=== PATIENT | female | born 1990 | race Caucasian/White ===

== ENCOUNTER → 2023-03-28 | Emergency (ER) | payer OTHER ==
[~2023-03-28] MED LIST: METOCLOPRAMIDE 10 MG/2mL INJ ONE; MORPHINE 4 MG/ML SYR ONE; NA CHLORIDE 0.9% 1,000 ML ONE; dexAMETHasone 10 MG/ML VIAL ONE
[2023-03-28 21:49] LABS: Specific Gravity 1.021 (1.005-1.030)
[2023-03-28 21:50] LABS: Urine Bacteria None Seen /HPF (<20); Urine Bilirubin NEGATIVE (Negative); Urine Blood Negative (Negative); Urine Clarity Turbid (Clear); Urine Color Light-Yellow (Yellow); Urine Crystals Unidentified Few /HPF (None Seen); Urine Glucose NEGATIVE (Negative); Urine Mucus Slight /HPF (None Seen); Urine Protein NEGATIVE (Negative); Urine RBC <5 /HPF (None Seen); Urine Urobilinogen Normal (Normal); Urine pH 6.5 (5.0-7.0)
[2023-03-28 21:58] LABS: Barbiturates NEGATIVE (NEGATIVE); Benzodiazepines NEGATIVE (NEGATIVE); Cocaine NEGATIVE (NEGATIVE); METHAMPHETAM NEGATIVE (NEGATIVE); Methadone NEGATIVE (NEGATIVE); Opiates POSITIVE (NEGATIVE); Phencyclidine NEGATIVE (NEGATIVE); THC Cannibis NEGATIVE (NEGATIVE)
[2023-03-28 22:00] LABS: Absolute Lymphocytes (CBC) 2.4 K/uL (0.7-4.9); Hematocrit 39.2 % (36.0-45.0); Lymphocytes % 18.3 % (15.3-44.8); MPV 9.8 fL (7.6-11.3); Platelets 271 thou/uL (152-406); RBC Red Blood Cell Count 4.67 M/uL (3.86-4.86)
[2023-03-28 22:02] LABS: Protime INR 1.24
[2023-03-28 22:11] LABS: Albumin 3.7 g/dL (3.4-5.0); Bilirubin Direct 0.1 mg/dL (0-0.2); Bilirubin Indirect, Calculated 0.4 mg/dL (0.2-0.8); Bilirubin Total 0.5 mg/dL (0.2-1.0); Protein, Total 8.5 g/dL (6.4-8.2); Troponin High Sensitivity 18.5 pg/mL (<58.9)
[2023-03-28 22:12] LABS: Potassium 4.3 mEq/L (3.5-5.1)
--- NOTE | 2023-03-28 23:50 | EDPHYS ---
Physician Documentation [facility] Name: Ellie Song Age: 33 yrs Sex: Female : 1990 Arrival Date: 03/28/2023 Time: 20:26 Bed 14 Private MD: ED Physician Charbel Rowley HPI: 03/28 21:17 This 33 yrs old Female presents to ER via EMS with complaints of Headache. sb4 21:17 patient with history of cerebral shunt and woods holt syndrome presents with sb4 complaints of severe headache with associated brief loss of consciousness. patient was seen here a month and a half ago with similar symptoms, but additionally with weakness and hyporeflexia. she had a multitude of tests done at [facility] without any definitive answer. she has been taking keppra daily since. she has not had an episode of severe headache until now. Historical: - Allergies: 20:58 Ibuprofen; km8 - Home Meds: 20:58 Keppra Oral [Active]; hydrocodone-acetaminophen 5-325 mg Oral tablet [Active]; km8 - PMHx: 20:58 cerebral shunt; [place] (cerebral shunt); km8 - PSHx: 20:58 right arm (cerebral shunt); km8 - Immunization history:: Client reports receiving the 2nd dose of the Covid vaccine, Flu vaccine is up to date. - Social history:: Smoking status: Patient denies any tobacco usage or history of. Patient uses alcohol, but reports only rare drinking. Patient/guardian denies using street drugs. ROS: 21:17 Constitutional: Negative for fever, chills, and weight loss, sb4 Vital Signs: 20:56 BP 132 / 101; Pulse 95; Resp 16; Temp 98.9; Pulse Ox 97% on R/A; Weight 90.72 kg; km8 Height 5 ft. 7 in. (R); Pain 9/10; 22:00 BP 128 / 81; Pulse 49; Resp 15; Pulse Ox 100% on R/A; Pain 3/10; pf1 23:00 BP 123 / 86; Pulse 56; Resp 15; Pulse Ox 99% on R/A; Pain 2/10; pf1 03/29 00:00 BP 123 / 80; Pulse 55; Resp 18; Pulse Ox 98% ; Pain 2/10; pf1 03/28 20:56 Body Mass Index 31.32 (90.72 kg, 170.18 cm) km8 02 20:56 Pain Scale: Adult km8 22:00 Pain Scale: Adult pf1 23:00 Pain Scale: Adult pf1 03/29 00:00 Pain Scale: Adult pf1 Sentinel Coma Score: 03/28 23:48 Eye Response: spontaneous(4). Motor Response: obeys commands(6). Verbal Response: sb4 oriented(5). Total: 15. MDM: 20:51 Patient medically screened. sb4 23:48 Data reviewed: vital signs, nurses notes, lab test result(s), EKG, radiologic studies, sb4 and as a result, I will discharge patient. Counseling: I had a detailed discussion with the patient and/or guardian regarding the historical points, exam findings, and any diagnostic results supporting the discharge/admit diagnosis, lab results, radiology results, the need for outpatient follow up, a neurologist, to return to the emergency department if symptoms worsen or persist or if there are any questions or concerns that arise at home. 03/28 21:04 Order name: Basic Metabolic Panel; Complete Time: 22:15 sb4 03/28 21:04 Order name: CBC with Diff; Complete Time: 22:05 sb4 03/28 21:04 Order name: Hepatic Function; Complete Time: 22:15 sb4 03/28 21:04 Order name: Magnesium; Complete Time: 22:15 sb4 03/28 21:04 Order name: Test, Urine; Complete Time: 21:50 sb4 03/28 21:04 Order name: Protime (+inr); Complete Time: 22:02 sb4 03/28 21:04 Order name: Ptt, Activated; Complete Time: 22:02 sb4 03/28 21:04 Order name: Troponin High Sensitivity; Complete Time: 22:15 sb4 03/28 21:04 Order name: UDS; Complete Time: 22:00 sb4 03/28 21:04 Order name: Urinalysis w/ reflexes; Complete Time: 21:51 sb4 03/28 21:08 Order name: Head Brain W/ Wo Con CT sb4 03/28 21:04 Order name: EKG; Complete Time: 21:04 sb4 03/28 21:04 Order name: Cardiac monitoring; Complete Time: 21:25 sb4 03/28 21:04 Order name: EKG - Nurse/Tech; Complete Time: 22:02 sb4 03/28 21:04 Order name: IV Saline Lock; Complete Time: : sb4 03/28 21:04 Order name: Labs collected and sent; Complete Time: :42 sb4 03/28 21:04 Order name: NPO; Complete Time: :25 sb4 03/28 21:04 Order name: O2 Per Protocol; Complete Time: : sb4 03/28 21:04 Order name: O2 Sat Monitoring; Complete Time: : sb4 EC:51 Rate is 46 beats/min. Rhythm is regular, Sinus bradycardia. [place] interval is normal at sb4 130 msec. QRS interval is normal at 98 msec. QT interval is prolonged at 488 msec. No Q waves. T waves are Normal. No ST changes noted. Clinical impression: Sinus bradycardia. Interpreted by me. Reviewed by me. Administered Medications: 22:01 Drug: Decadron - Dexamethasone IVP 10 mg IVP once Route: IVP; Site: right hand; pf1 23:00 Follow up: Response: No adverse reaction; Marked relief of symptoms pf1 22:01 Drug: NS 0.9% IV 1000 ml IV at 1 bolus Per protocol; 1000 mL bolus Route: IV; Rate: 1 pf1 bolus; Site: right hand; 23:00 Follow up: Response: No adverse reaction; Marked relief of symptoms pf1 23:00 Follow up: Response: No adverse reaction; Marked relief of symptoms; IV Status: pf1 Completed infusion; IV Intake: 1000ml 22:02 Drug: metoCLOPramide IVP 10 mg IVP once; over 1 to 2 minutes Route: IVP; Site: right pf1 hand; 23:00 Follow up: Response: No adverse reaction; Marked relief of symptoms pf1 23:53 CANCELLED (Patient Refused): morphineor iv 4 mg IVP once over 4 mins pf1 Disposition: 23:48 Chart complete. sb4 03/29 05:24 Co-signature as Attending Physician, Charbel Rowley MD I agree with the assessment sp4 and plan of care. I reviewed the patient's care provided by the Advanced Practice Provider and agree with the diagnosis and treatment plan. Disposition Summary: 03/28/23 23:49 Discharge Ordered Notes: Location: Home sb4 Problem: an acute exacerbation sb4 Symptoms: have improved sb4 Condition: Stable sb4 Diagnosis - Complicated headache syndromes sb4 Followup: sb4 - With: Emergency Department - When: As needed - Reason: Trouble breathing, Worsening of condition Discharge Instructions: - Discharge Summary Sheet sb4 - Migraine Headache, [id number] sb4 Forms: - Thank You Letter sb4 - Patient Portal Instructions sb4 - Leadership Thank You Letter sb4 Prescriptions: - Imitrex 5 mg/Actuation Nasal Yeso - inhale 1 spray INTRANASAL route one time x 1 dose; if headache returns, the sb4 dose may be repeated once after 2 hours, not to exceed a total daily dose of 8 sprays; 1 Applicator; Refills: 0, Product Selection Permitted - Reglan 10 mg Oral Tablet - take 1 tablet ORAL route every 6 hours take 30 minutes before meals and at sb4 bedtime; 20 tablet; Refills: 0, Product Selection Permitted Signatures: Dispatcher [employer] EDJagruti Blackmon PA-C PA-C sb4 Karin Krishnamurthy RN RN pf1 Charbel Rowley MD MD sp4 Peg Kaur RN RN km8 Corrections: (The following items were deleted from the chart) 03/28 21:14 21:04 Head Brain Wo Cont+CT.RAD.BRZ ordered. EDMS EDMS 23:53 21:04 morphine IVP or IV 4 mg IVP once over 4 mins ordered. sb4 pf1 23:53 23:53 morphine IVP or IV 4 mg IVP once over 4 mins ordered. pf1 pf1
--- NOTE | 2023-03-28 23:50 | ER ---
Nurse's Notes [facility] Name: Ellie Song Age: 33 yrs Sex: Female : 1990 Arrival Date: 03/28/2023 Time: 20:26 Bed 14 Private MD: Diagnosis: Complicated headache syndromes Presentation: 03/28 20:30 Chief complaint: EMS states: tone out for migraine and pt being unconscious; pt reports km8 MORROW for 3 days, with hx of migraines; VSS. Onset of symptoms was March 25, 2023. 20:30 Method Of Arrival: EMS: [facility] km8 20:56 Chief complaint: Spouse and/or significant other states: MORROW for 3 days, using km8 medication as prescribed, but no relief; pt had LOC for about 5 mins before EMS arrived. Coronavirus screen: Client denies travel out of the [place] in the last 14 days. Ebola Screen: No symptoms or risks identified at this time. Initial Sepsis Screen: Does the patient meet any 2 criteria? No. Patient's initial sepsis screen is negative. Does the patient have a suspected source of infection? No. Patient's initial sepsis screen is negative. Risk Assessment: Do you want to hurt yourself or someone else? Patient reports no desire to harm self or others. 20:56 Acuity: KWAME 3 km8 Triage Assessment: 20:58 Headache History: The patient has had previous headaches and this one is similar to km8 previous episodes. General: Appears in no apparent distress. uncomfortable, Behavior is anxious, flat. Pain: Complains of pain in forehead Pain currently is 8 out of 10 on a pain scale. Pain began 2-3 days ago. Also complains of photophobia. Neuro: Level of Consciousness is awake, alert, obeys commands, Oriented to person, place, time, situation, Reports headache frontal area. Cardiovascular: Denies chest pain, shortness of breath, Capillary refill < 3 seconds Patient's skin is warm and dry. Respiratory: Airway is patent Respiratory effort is even, unlabored, Respiratory pattern is regular, symmetrical. GI: Reports nausea. Derm: Skin is intact, is healthy with good turgor, Skin is dry, Skin is pink, warm \T\ dry. normal, Skin temperature is warm. Historical: - Allergies: 20:58 Ibuprofen; km8 - Home Meds: 20:58 Keppra Oral [Active]; hydrocodone-acetaminophen 5-325 mg Oral tablet [Active]; km8 - PMHx: 20:58 cerebral shunt; [place] (cerebral shunt); 8 - PSHx: 20:58 right arm (cerebral shunt); km8 - Immunization history:: Client reports receiving the 2nd dose of the Covid vaccine, Flu vaccine is up to date. - Social history:: Smoking status: Patient denies any tobacco usage or history of. Patient uses alcohol, but reports only rare drinking. Patient/guardian denies using street drugs. Screenin:[facility] ED Fall Risk Assessment (Adult) History of falling in the last 3 months, pf1 including since admission No falls in past 3 months (0 pts) Confusion or Disorientation No (0 pts) Intoxicated or Sedated No (0 pts) Impaired Gait Yes (1 pt) Mobility Assist Device Used No (0 pt) Altered Elimination No (0 pt) Score/Fall Risk Level 0 - 2 = Low Risk Oriented to surroundings, Maintained a safe environment, Educated pt \T\ family on fall prevention, incl call for assistance when getting out of bed, Assessed \T\ reinforced patient's understanding of fall precautions, Provided non-skid footwear, Hourly rounding (assess needs \T\ fall precautionary measures) done, Used ambulatory aids as needed (educated on \T\ assisted with), Used gait belt as appropriate. 21:30 Abuse screen: Denies threats or abuse. Nutritional screening: No deficits noted. pf1 Tuberculosis screening: No symptoms or risk factors identified. Assessment: 21:02 General: Appears in no apparent distress. comfortable, well groomed, well developed, pf1 Behavior is calm, cooperative, appropriate for age, quiet. 21:02 Pain: Complains of pain in forehead Pain currently is 3 out of 10 on a pain scale. pf1 Neuro: Level of Consciousness is awake, alert, obeys commands, Oriented to person, place, time, situation, Reports headache frontal area, per family members a syncopal episode. Cardiovascular: No deficits noted. Capillary refill < 3 seconds Patient's skin is warm and dry. Parent/caregiver reports patient has had syncope. Respiratory: No deficits noted. Airway is patent Respiratory effort is even, unlabored, Respiratory pattern is regular, symmetrical, Breath sounds are clear bilaterally. GI: No deficits noted. No signs and/or symptoms were reported involving the gastrointestinal system. : No deficits noted. No signs and/or symptoms were reported regarding the genitourinary system. EENT: No deficits noted. No signs and/or symptoms were reported regarding the EENT system. Derm: No deficits noted. No signs and/or symptoms reported regarding the dermatologic system. 22:00 Reassessment: Patient appears in no apparent distress at this time. Patient and/or pf1 family updated on plan of care and expected duration. Pain level reassessed. Patient is alert, oriented x 3, equal unlabored respirations, skin warm/dry/pink. 23:00 Reassessment: Patient appears in no apparent distress at this time. Patient and/or pf1 family updated on plan of care and expected duration. Pain level reassessed. Patient is alert, oriented x 3, equal unlabored respirations, skin warm/dry/pink. Patient states symptoms have improved. 03/29 00:00 Reassessment: Patient appears in no apparent distress at this time. Patient and/or pf1 family updated on plan of care and expected duration. Pain level reassessed. Patient is alert, oriented x 3, equal unlabored respirations, skin warm/dry/pink. Patient states feeling better. Patient states symptoms have improved. Vital Signs: 03/28 20:56 BP 132 / 101; Pulse 95; Resp 16; Temp 98.9; Pulse Ox 97% on R/A; Weight 90.72 kg; km8 Height 5 ft. 7 in. (R); Pain 9/10; 22:00 BP 128 / 81; Pulse 49; Resp 15; Pulse Ox 100% on R/A; Pain 3/10; pf1 23:00 BP 123 / 86; Pulse 56; Resp 15; Pulse Ox 99% on R/A; Pain 2/10; pf1 03/29 00:00 BP 123 / 80; Pulse 55; Resp 18; Pulse Ox 98% ; Pain 2/10; pf1 03/28 20:56 Body Mass Index 31.32 (90.72 kg, 170.18 cm) [facility] 03/28 20:56 Pain Scale: Adult 8 22:00 Pain Scale: Adult pf1 23:00 Pain Scale: Adult pf1 03/29 00:00 Pain Scale: Adult pf1 Omar Coma Score: 03/28 23:48 Eye Response: spontaneous(4). Motor Response: obeys commands(6). Verbal Response: sb4 oriented(5). Total: 15. ED Course: 20:28 Patient arrived in ED. [id number] 20:33 Jagruti Winston [facility]-C [facility] sb4 20:33 Charbel Rowley MD is Attending Physician. sb4 20:58 Triage completed. km8 20:58 Arm band placed on right wrist. km8 21:00 Patient has correct armband on for positive identification. Bed in low position. Call pf1 light in reach. Side rails up X2. 21:39 Test, Urine Sent. ty 21:42 Inserted saline lock: 22 gauge in right hand, using aseptic technique. Blood collected. as6 22:40 Head Brain W/ Wo Con CT In Process Unspecified. EDMS 03/29 00:10 Provided Education on: prescriptions. pf1 00:10 No provider procedures requiring assistance completed. IV discontinued, intact, pf1 bleeding controlled, No redness/swelling at site. Pressure dressing applied. Administered Medications: 03/28 22:01 Drug: Decadron - Dexamethasone IVP 10 mg IVP once Route: IVP; Site: right hand; pf1 23:00 Follow up: Response: No adverse reaction; Marked relief of symptoms pf1 22:01 Drug: NS 0.9% IV 1000 ml IV at 1 bolus Per protocol; 1000 mL bolus Route: IV; Rate: 1 pf1 bolus; Site: right hand; 23:00 Follow up: Response: No adverse reaction; Marked relief of symptoms pf1 23:00 Follow up: Response: No adverse reaction; Marked relief of symptoms; IV Status: pf1 Completed infusion; IV Intake: 1000ml 22:02 Drug: metoCLOPramide IVP 10 mg IVP once; over 1 to 2 minutes Route: IVP; Site: right pf1 hand; 23:00 Follow up: Response: No adverse reaction; Marked relief of symptoms pf1 23:53 CANCELLED (Patient Refused): morphineor iv 4 mg IVP once over 4 mins pf1 Medication: 03/29 00:10 VIS not applicable for this client. pf1 Intake: 03/28 23:00 IV: 1000ml; Total: 1000ml. pf1 Outcome: 23:49 Discharge ordered by . sb4 03/29 00:10 Discharged to home via wheelchair, with family, pf1 00:10 Condition: improved pf1 00:10 Discharge instructions given to patient, family, Instructed on discharge instructions, follow up and referral plans. Demonstrated understanding of instructions, follow-up care, medications, Prescriptions given X 2, 00:10 Patient left the ED. pf1 Signatures: Dispatcher [employer] EDCO Shanika [id number] Delonte Lee RN RN as6 Jagruti Winston PA-C PARizwan sb4 Karin Krishnamurthy, RN RN pf1 Peg Kaur RN RN km8 Rich Alcantar Corrections: (The following items were deleted from the chart) 05:36 00:23 Patient left the ED. pf1 pf1
[2023-03-29 00:55] VITALS: BP 123/86; TEMP 98.9; O2SAT 99
--- NOTE | 2023-03-29 14:35 | RAD REPORT ---
EXAM DESCRIPTION: CT Head Without and With Intravenous Contrast CLINICAL HISTORY: The patient is 33 years old and is Female; Headache;Syncope;Seizure TECHNIQUE: Axial computed tomography images of the head/brain without and with intravenous contrast. Sagittal and coronal reformatted images were created and reviewed. This CT exam was performed us ing one or more of the following dose reduction techniques: automated exposure control, adjustment of the mA and/or kV according to patient size, and/or use of iterative reconstruction technique. COMPARISON: CT of the head February 07, 2023 FINDINGS: BRAIN: Evidence of a Chiari malformation is noted. No hemorrhage. No significant white matter disease. No edema. Normal enhancement. VENTRICLES: The ventricles are normal in caliber without hydrocephalus. BONES/JOINTS: No acute fracture. SOFT TISSUES: Unremarkable. SINUSES: Unremarkable as visualized. No acute sinusitis. MASTOID AIR CELLS: Unremarkable as visualized. No mastoid effusion. ORBITS: Unremarkable as visualized. TUBES, LINES AND DEVICES: Evidence of a left posterior parietal shunt is noted with the tip endin g in the left middle cranial fossa, unchanged from prior. IMPRESSION: No acute intracranial findings or detrimental change from prior exam. Electronically signed by: Jessica Lemos MD 03/28/2023 11:22 PM JUDICIAL ASSISTANT Due to temporary technical issues with the PACS/Fluency reporting system, reports are being signed by the in house radiologists without review as a courtesy to insure prompt reporting. The interpreting radiologist is fully responsible for the content of the report.
== END ==
LOC: ER 20:26
DX: G44.59 Other complicated headache syndrome (principal); R53.1 Weakness; R29.2 Abnormal reflex; Z98.2 Presence of cerebrospinal fluid drainage device; Z88.6 Allergy status to analgesic agent
CPT/HCPCS: 85025; 81001; 80048; 36415; 83735; 81025; 85610; 80076; 85730; 84484; 80307; 70470; Q9967; J2765; J1100; J7030

== ENCOUNTER → 2023-04-18 | Emergency (ER) | payer OTHER ==
[~2023-04-18] MED LIST changes: +ACETAZOLAMIDE 500 MG IV ONE; +DIAZEPAM 10 MG/2 ML INJ SYRINGE ONE; +DIPHENHYDRAMINE 50 MG/ML VIAL ONE; +ETOMIDATE 20 MG/10 ML VIAL IV ONE; +FENTANYL CITR 100 MCG/2 ML ONE; +HALOPERIDOL LACT 5 MG/ML INJ ONE; +HYDROCORTISONE SUC 100 MG INJ ONE; +KETAMINE HCL IN 0.9 % NACL 50 MG/5 ML SYRINGE IV ONE; +LEVETIRACETAM 500 MG/5 ML VIAL IV ONE; -METOCLOPRAMIDE 10 MG/2mL INJ ONE; +MIDAZOLAM HCL 2 MG/2 ML INJ ONE; +Magnesium Sulfate 2gm IVPB 2 G/50 ML BAG IV ONE; +NA CHLORIDE 0.9% 50 ML ONE; +ONDANSETRON 4 MG/2 ML VIAL ONE; +WATER FOR INJ,STERILE 10 ML ONE; -dexAMETHasone 10 MG/ML VIAL ONE
[2023-04-18 20:50] LABS: ALT/SGPT 52 U/L (13-56); Albumin 3.7 g/dL (3.4-5.0); Albumin/Globulin Ratio 0.9 (1.1-1.8); Alkaline Phosphatase 83 U/L (45-117); Anion Gap 12.7 mEq/L (5.0-15.0); BUN Blood Urea Nitrogen 10 mg/dL (7-18); Bicarbonate 22 mEq/L (21-32); Bilirubin Total 0.4 mg/dL (0.2-1.0); Globulin 3.9 g/dL (2.3-3.5); Glomerular Filtration Rate 119 ml/min (=/>90); Glucose Level 201 mg/dL (74-106); Protein, Total 7.6 g/dL (6.4-8.2); Sodium Level 138 mEq/L (136-145)
[2023-04-18 20:51] LABS: AST/SGOT 21 U/L (15-37); Bilirubin Direct < 0.1 mg/dL (0-0.2); Bilirubin Indirect, Calculated ND mg/dL (0.2-0.8); Potassium 3.7 mEq/L (3.5-5.1)
[2023-04-18 21:19] LABS: Absolute Basophils 0.1 K/uL (0-0.5); Absolute Lymphocytes (CBC) 2.4 K/uL (0.7-4.9); Basophils % 0.4 % (0-1.3); Eosinophils % 0.1 % (0-4.4); Hematocrit 38.6 % (36.0-45.0); Hemoglobin 12.8 g/dL (12.0-15.0); Lymphocytes % 12.6 % (15.3-44.8); MCV 85.6 fL (80-100); MPV 8.9 fL (7.6-11.3); Platelets 252 thou/uL (152-406); RBC Red Blood Cell Count 4.52 M/uL (3.86-4.86)
[2023-04-19 00:15] LABS: Body Fluid Source CSF; Color of fluid Colorless (COLORLESS); Fluid Total Volume 8 ml
[2023-04-19 00:16] LABS: Appearance CLEAR (CLEAR); Color of Supernate Not Xanthochromic (Not Xantho)
[2023-04-19 00:23] LABS: Body Fluid Lymphocytes ND %; Body Fluid WBC 2 /mm^3; Fluid Total Cells Count ND
[2023-04-19 00:32] LABS: CSF Glucose 94 mg/dL (40-70)
[2023-04-19 01:21] LABS: Body Fluid Source CSF
[2023-04-19 01:22] LABS: Appearance CLEAR (CLEAR); Color of Supernate Not Xanthochromic (Not Xantho); Color of fluid Colorless (COLORLESS)
[2023-04-19 01:36] LABS: Body Fluid Lymphocytes ND %; Body Fluid WBC 1 /mm^3; Fluid Total Cells Count ND
--- NOTE | 2023-04-19 04:14 | EDPHYS ---
Physician Documentation [facility] Name: Ellie Song Age: 33 yrs Sex: Female : 1990 Arrival Date: 04/18/2023 Time: 19:34 Bed 3 Private MD: ED Physician Charbel Rowley HPI: 04/17 19:57 This 33 yrs old Female presents to ER via EMS with complaints of seizures. sb4 19:57 The patient presents with a history of multiple seizures, a total of 2, that last 6 sb4 minute(s), the episode(s) was witnessed, by EMS personnel, by family. Character of seizure(s): Loss of consciousness: the patient experienced loss of consciousness, Motor activity: blank stare, Incontinence: incontinent of bladder, Apnea: the patient did not experience apnea, Circulation: the patient did not experience evidence of pulse disturbance, Eye movements: are unknown. Seizure onset: just prior to arrival. 19:57 patient with unknown neurologic disorder currently being worked up by several sb4 specialists at [facility]. had 2 absence seizures this evening. is not currently on any antiepileptics or any other medications. is currently postictal complaining of a severe headache. 22:10 Patient care was assumed from from physician junior sales assistant. Patient is 33-year-old female sp4 with history of syncopal episodes and possible seizures with history of extensive workup in the past. Patient's neurologist has reported to me that patient has extensive workup with EEG, MRI, MRA, MRV that were all negative . Patient does have nonfunctional [employer] shunt. Patient today apparently developed syncopal episode versus seizures reported as loss of consciousness and blank stare with incontinence of bladder. Patient has received Ativan prior to arrival and received Valium 10 mg IM on arrival to the emergency room . Patient reported moderate to severe associated headache.. Historical: - Allergies: 19:47 Ibuprofen; km8 - PMHx: 19:47 cerebral shunt; Chuck Holt (cerebral shunt); km8 - PSHx: 19:47 right arm (al); km8 - Social history:: Smoking status: Patient denies any tobacco usage or history of. Patient/guardian denies using alcohol, street drugs. ROS: 19:59 Constitutional: Negative for fever, chills, and weight loss, sb4 19:59 Neuro: Positive for altered mental status, headache, seizure activity, 19:59 All other systems are negative, Exam: 19:59 Head/Face: Normocephalic, atraumatic. Eyes: Extra-ocular motions intact. Periorbital sb4 areas with no swelling, redness, or edema. ENT: Mucous membranes moist. Cardiovascular: Regular rate and rhythm with a normal S1 and S2. Respiratory: Lungs have equal breath sounds bilaterally, clear to auscultation and percussion. No rales, rhonchi or wheezes noted. No increased work of breathing, no retractions or nasal flaring. Abdomen/GI: Soft, non-tender, no distension. Skin: Warm, dry with normal turgor. Normal color with no rashes, no lesions, and no evidence of cellulitis. MS/ Extremity: Pulses equal, no cyanosis. Neurovascular intact. Full, normal range of motion. 19:59 Constitutional: The patient appears alert, awake, uncomfortable, 19:59 Neuro: Orientation: to person, place \T\ time. Mentation: sleepy, Sensation: is normal, Gait: not tested. seizure activity, is not currently displayed, but the patient is post-ictal, 22:25 ECG was reviewed by the Attending Physician. EKG at 2009 sp4 Vital Signs: 19:43 BP 137 / 85; Pulse 95; Resp 16; Pulse Ox 97% on R/A; Weight 81.65 kg (R); Height 5 ft. km8 7 in. (R); Pain 5/10; 23:17 BP 162 / 79; Pulse 81; Resp 17; Pulse Ox 100% ; jj7 0312 00:14 BP 128 / 90; Pulse 76; Resp 15; Pulse Ox 100% ; jj7 01:00 BP 142 / 98; Pulse 76; Resp 15; Pulse Ox 100% ; jj7 02:03 BP 130 / 85; Pulse 58; Resp 17; Pulse Ox 97% ; Pain 0/10; jj7 03:00 BP 129 / 94; Pulse 65; Resp 15; Pulse Ox 100% ; jj7 04:10 BP 140 / 110; Pulse 64; Resp 15; Pulse Ox 98% ; j7 0311 19:43 Body Mass Index 28.19 (81.65 kg, 170.18 cm) [facility] 04/17 19:43 Pain Scale: Adult km8 02:03 Pain Scale: Adult jj7 [place] Coma Score: 04/17 19:43 Eye Response: spontaneous(4). Motor Response: obeys commands(6). Verbal Response: km8 confused(4). Total: 14. Procedures: 23:55 Lumbar Puncture: Patient placed in left lateral decubitus position. Prepped with sp4 Betadine. Draped using sterile technique. Collected 8 ml's of clear fluid. Sample sent to lab. Puncture site dressed with 4x4s, Procedure unsuccessful. Patient tolerated well. Pressure measured at 24.5 cm of water which is above normal . MDM: 19:42 Patient medically screened. sb4 04/18 00:00 ED course: EXAM:Head Brain Wo Cont 04/18/2023 10:45 PM CDT CLINICAL INDICATION: SEIZURE sp4 COMPARISON: Head CT March 28, 2023 TECHNIQUE: Axial CT images of the head are obtained from the skull base to the vertex without IV contrast. Axial, sagittal, and coronal images are interpreted. This exam was performed according to our departmental dose-optimization protocol, which includes automated exposure control, adjustment of the mA and/or kV according to patient size and/or use of iterative reconstruction technique. DLP: 845.9 mGy-cm. FINDINGS: CORTEX: There is no evidence of cerebral edema, mass, mass effect, hemorrhage, or recent cortical infarct. The chavez-white distinction is maintained. WHITE MATTER: No significant white matter disease or atrophy. BASAL GANGLIA: Basal ganglia are intact. VENTRICLES: The ventricles and subarachnoid spaces are stable. No hydrocephalus. No acute extra-axial process There is a left shunt with tip in the anterior left middle cranial fossa. Stable position compared to prior study POSTERIOR FOSSA: Cerebellar tonsils again extend to the foramen magnum which can be seen in the setting of Chiari malformation. Stable appearance. No mass, mass effect, hemorrhage or recent cortical infarct is present. The foramen magnum is normal. SKULL: No acute skull abnormality is seen. No lytic or sclerotic lesions. ORBITS, VISUALIZED PARANASAL SINUSES AND MASTOIDS: Nodular focus left maxillary sinus compatible with polyp or mucous retention cyst. No paranasal sinus air-fluid level The mastoid air cells are clear. No orbital pathology. IMPRESSION: 1. No acute intracranial process. 2. Stable position left shunt. No hydrocephalus Standardized Report: [id number]. . 00:07 ED course: Patient was discussed with neurologist, who has said that concern is for sp4 unusual or aseptic meningitis or benign recurrent lymphocytic meningitis such as Mollaret's meningitis, which would warrant transfer for higher level of care. . 00:36 Data reviewed: vital signs, nurses notes, EMS record, lab test result(s), EKG, sp4 radiologic studies, CT scan. ED course: Patient is awaiting LP report. . 04:13 Differential Diagnosis altered mental status, sepsis, flu. ED course: Patient has sp4 manifested with severe headaches at home, seizure-like activity, syncopal episodes. Patient was given LP secondary to the fact that she is having severe headaches, unusual neurologic presentation, also elevated white count 18,000+ neutrophilic predominance. LP has revealed elevated total protein, elevated glucose, no sign of bacterial meningitis. Opening pressure on CSF was measured at 24.5 centimeters of water. CSF was collected and sent to the lab. Patient was discussed with neurologist at [facility]. Patient was accepted for further evaluation and management.. 04/17 19:56 Order name: Basic Metabolic Panel; Complete Time: 21:47 sb4 04/17 19:56 Order name: CBC with Diff; Complete Time: 21:47 sb4 04/17 19:56 Order name: Hepatic Function; Complete Time: 21:47 sb4 04/17 19:56 Order name: Magnesium; Complete Time: 21:47 sb4 04/17 20:18 Order name: Test, Serum; Complete Time: 21:47 sp4 04/17 23:55 Order name: Csf Culture [facility] 04/17 23:55 Order name: Fluid Cell Count,Body 4 04/17 23:55 Order name: Spinal Fluid Profile [facility] 04/18 00:23 Order name: CSF SPECIMEN; Complete Time: 00:37 EDMS 04/18 00:23 Order name: Cell Count Profile; Complete Time: 00:37 EDMS 04/18 00:32 Order name: CSF Glucose; Complete Time: 00:37 EDMS 04/18 00:32 Order name: CSF Total Protein; Complete Time: 00:37 EDMS 04/18 01:10 Order name: CSF Culture [facility] 04/18 01:36 Order name: Body Fluid Cell Count; Complete Time: 02:50 EDMS 04/17 22:07 Order name: CT Head Brain wo Cont sp4 04/17 22:48 Order name: Head Brain Wo Cont EDMS 04/17 19:56 Order name: EKG; Complete Time: 19:56 sb4 04/17 19:56 Order name: Cardiac monitoring; Complete Time: 20:12 sb4 04/17 19:56 Order name: EKG - Nurse/Tech; Complete Time: 20:24 sb4 04/17 19:56 Order name: IV Saline Lock; Complete Time: 21:32 sb4 04/17 19:56 Order name: Labs collected and sent; Complete Time: 21:20 sb4 04/17 19:56 Order name: O2 Per Protocol; Complete Time: 20:12 sb4 04/17 19:56 Order name: O2 Sat Monitoring; Complete Time: 20:12 sb4 04/17 22:25 Order name: Moderate Sedation; Complete Time: 00:06 sp4 04/17 22:25 Order name: Lumbar Puncture Consent; Complete Time: 00:06 sp4 04/17 22:25 Order name: Lumbar Puncture Setup; Complete Time: 00:06 sp4 04/17 23:55 Order name: LP Consents; Complete Time: 00:12 sp4 04/17 23:55 Order name: LP Setup; Complete Time: 00:12 sp4 04/18 00:44 Order name: [place]; Complete Time: 00:44 jj7 EC/11 22:25 Rate is 52 beats/min. Rhythm is regular, Sinus bradycardia. QRS [place] is Normal. SC sp4 interval is normal. QRS interval is normal. QT interval is normal. No Q waves. T waves are Normal. No ST changes noted. Clinical impression: No evidence of ischemia. Interpreted by me. Reviewed by me. Administered Medications: 20:08 Drug: Diazepam IM 10 mg IM once Route: IM; Site: right deltoid; km8 23:30 Follow up: Response: No adverse reaction jj7 21:32 Drug: Keppra IV 1000 mg IV at calculated rate once Route: IV; Rate: calculated rate; km8 Site: left wrist; 21:32 Drug: morphine IVP or IV 4 mg IVP once over 4 mins Route: IVP; Infused Over: 4 mins; km8 Site: left wrist; 23:20 Follow up: Response: No adverse reaction jj7 21:32 Drug: Ondansetron IVP 4 mg IVP once; over 2 minutes Route: IVP; Site: left wrist; km8 23:20 Follow up: Response: No adverse reaction jj7 21:32 Drug: diphenhydrAMINE IVP 25 mg IVP once Route: IVP; Site: left wrist; km8 23:20 Follow up: Response: No adverse reaction jj7 21:32 Drug: Midazolam IVP or IV 2 mg IVP once Route: IVP; Site: left wrist; km8 23:20 Follow up: Response: No adverse reaction jj7 22:21 Drug: Solu-CORTEF IVP 100 mg IVP once Route: IVP; Site: right jugular; km8 23:20 Follow up: Response: No adverse reaction jj7 22:22 Drug: Magnesium Sulfate IVPB 2 grams IVPB once over 2 hrs Route: IVPB; Infused Over: 2 km8 hrs; Site: right jugular; 04/18 00:30 Follow up: IV Status: Completed infusion jj7 04/17 22:23 Drug: Haloperidol IVP 5 mg IVP once Route: IVP; Site: right jugular; km8 23:20 Follow up: Response: No adverse reaction jj7 22:24 Drug: NS 0.9% IV 1000 ml IV at 1 bolus Per protocol; 1000 mL bolus Route: IV; Rate: 1 km8 bolus; Site: right jugular; 23:30 Follow up: IV Status: Completed infusion jj7 23:23 Drug: Etomidate IVP 20 mg IVP once Route: IVP; Site: Other; jj7 23:25 Follow up: Response: RASS: Moderate sedation (-3) jj7 23:23 Drug: Ketamine IVP 100 mg IVP once Route: IVP; Site: right jugular; jj7 23:25 Follow up: Response: RASS: Moderate sedation (-3) jj7 23:25 Follow up: Response: RASS: Moderate sedation (-3) jj7 23:50 Drug: Lidocaine Infiltration (1 %) 20 ml 20 ml Infiltration once; to bedside Volume: 20 jj7 ml; Route: Infiltration; 04/18 04:21 Follow up: Response: No adverse reaction jj7 00:14 Not Given (Physician Discretion): [id number] mg IVP once jj7 00:55 Drug: NS 0.9% IV 1000 ml IV at 250 ml/hr continuous Route: IV; Rate: 250 ml/hr; Site: [facility] Other; 04:56 Follow up: IV Status: Infusion continued upon transfer jj7 01:38 Drug: fentaNYL (PF) IVP 100 mcg IVP once Route: IVP; Site: Other; j7 02:00 Follow up: Response: Marked relief of symptoms jj7 03:47 Drug: acetazola 500 mg IV at calculated rate bolus Route: IV; Rate: calculated rate; j7 Site: Other; 04:20 Follow up: IV Status: Completed infusion jj7 04:07 Drug: Ketamine IVP 50 mg IVP once Route: IVP; Site: Other; j7 04:20 Follow up: Response: Marked relief of symptoms j7 Disposition: 00:36 Co-signature as Attending Physician, Charbel Rowley MD I agree with the assessment sp4 and plan of care. I reviewed the patient's care provided by Advanced Practice Provider \T\ agree w/ the diagnosis \T\ care plan. I personally saw the pt \T\ performed a substantive portion of the visit, incldng all aspects of the (History/Exam/Medical Decision Making). Disposition Summary: 04/19/23 04:13 Transfer Ordered Notes: Transfer Location: [facility] sp4 Reason: Higher level of care sp4 Condition: Stable sp4 Problem: new sp4 Symptoms: have improved sp4 Accepting Physician: [facility] Attending MD / Neurologist (04/19/23 05:13) jj7 Diagnosis - Headache sp4 - Elevated CSF pressure, intractable headache, intractable seizures, aseptic sp4 meningitis Forms: - Medication Reconciliation Form sp4 - SBAR form sp4 Signatures: Dispatcher [employer] Damian Trujillo RN RN jj7 Jagruti Winston PA-C PA-C sb4 Potepalov, Sergey, MD MD sp4 Peg Kaur RN RN km8 Corrections: (The following items were deleted from the chart) 04/17 20:00 19:57 patient with unknown neurologic disorder currently being worked up by several sb4 specialists at [facility]. had 2 absence seizures this evening in i. sb4 20:27 19:56 Head C Spine MPR Wo Con+CT.RAD.BRZ ordered. EDMS EDMS : 20:12 TEST, SERUM+SC.LAB.BRZ ordered. EDMS EDMS 22:10 19:56 Test, Urine+UC.LAB.BRZ ordered. EDMS EDMS 04/18 05:13 04:13 [facility] Attending MD / Neurologist sp4 jj7
--- NOTE | 2023-04-19 04:14 | ER ---
Nurse's Notes [facility] Name: Ellie Song Age: 33 yrs Sex: Female : 1990 Arrival Date: 04/18/2023 Time: 19:34 Bed 3 Private MD: Diagnosis: Headache;Elevated CSF pressure, intractable headache, intractable seizures, aseptic meningitis Presentation: 04/17 19:43 Chief complaint: EMS states: toned out for seizure and unresponsive; pt having absent km8 seizure upon arrival given 2mg of Ativan IM, now A\T\Ox3. Coronavirus screen: Client denies travel out of the [place] in the last 14 days. Ebola Screen: No symptoms or risks identified at this time. Initial Sepsis Screen: Does the patient meet any 2 criteria? HR > 90 bpm. No. Patient's initial sepsis screen is negative. Does the patient have a suspected source of infection? No. Patient's initial sepsis screen is negative. Risk Assessment: Do you want to hurt yourself or someone else? Patient reports no desire to harm self or others. Onset of symptoms was April 18, 2023. Care prior to arrival: Medication(s) given: Ativan 2mg IM. 19:43 Method Of Arrival: EMS: [facility] km8 19:43 Acuity: KWAME 2 km8 Triage Assessment: 19:47 General: Appears distressed, Behavior is anxious, restless. Pain: Complains of pain in km8 head Pain currently is 5 out of 10 on a pain scale. Quality of pain is described as aching. EENT: No signs and/or symptoms were reported regarding the EENT system. Neuro: Level of Consciousness is awake, alert, confused, Oriented to person, place, Seizure activity reported prior to arrival. Type of seizure: absence seizure. Seizure lasted approximately 6 minutes. no seizure activity at this time. Cardiovascular: Denies chest pain, shortness of breath, Patient's skin is warm and dry. Respiratory: Airway is patent Respiratory effort is even, unlabored, Respiratory pattern is regular. GI: No signs and/or symptoms were reported involving the gastrointestinal system. : No signs and/or symptoms were reported regarding the genitourinary system. Derm: Skin is intact, is healthy with good turgor, Skin is dry, Skin is pink, warm \T\ dry. normal, Skin temperature is cool. Musculoskeletal: No signs and/or symptoms reported regarding the musculoskeletal system. Range of motion: intact in all extremities. Historical: - Allergies: 19:47 Ibuprofen; km8 - PMHx: 19:47 cerebral shunt; Chuck Holt (cerebral shunt); km8 - PSHx: 19:47 right arm (al); km8 - Social history:: Smoking status: Patient denies any tobacco usage or history of. Patient/guardian denies using alcohol, street drugs. Screenin:43 [facility] ED Fall Risk Assessment (Adult) History of falling in the last 3 months, km8 including since admission Yes- single mechanical fall (1 pt) Confusion or Disorientation Yes (5 pts) Intoxicated or Sedated No (0 pts) Impaired Gait Yes (1 pt) Mobility Assist Device Used Yes (1 pt) Altered Elimination Yes (1 pt) Score/Fall Risk Level 3 or more points = High Risk Oriented to surroundings, Maintained a safe environment, Educated pt \T\ family on fall prevention, incl call for assistance when getting out of bed, Assessed \T\ reinforced patient's understanding of fall precautions, Provided non-skid footwear, Hourly rounding (assess needs \T\ fall precautionary measures) done, Used ambulatory aids as needed (educated on \T\ assisted with), Implemented a Fall Risk Plan of Care, Remained w/in arm's length of patient and in sight while toileting, Offered frequent toileting (1:1 observation), Remained with patient while ambulating, Utilized family, sitter, or virtual product communications manager as indicated. Abuse screen: Denies threats or abuse. Denies injuries from another. Nutritional screening: No deficits noted. Tuberculosis screening: No symptoms or risk factors identified. Assessment: 19:43 Reassessment: see triage notes/assessment. km8 20:15 Reassessment: pt having seizure like activity for less than 1 minute; PA notified; km8 Valium given per order; pt bradycardic down to 36, needing sternal rub to respond a few times, PA notified then MD notified. 23:17 Reassessment: ASSUMED CARE OF PT. PT LYING IN BED JUST MOANING. VS STABLE. PT SET UP jj7 FOR LUMBAR PUNCTURE. FAMILY ASKED TO LEAVE ROOM FOR PROCEDURE. 04/18 01:30 Reassessment: Patient is alert, oriented x 3, equal unlabored respirations, skin jj7 warm/dry/pink. 04:44 Reassessment: REPORT GIVEN TO [facility]. jj7 Vital Signs: 04/17 19:43 BP 137 / 85; Pulse 95; Resp 16; Pulse Ox 97% on R/A; Weight 81.65 kg (R); Height 5 ft. km8 7 in. (R); Pain 5/10; 23:17 BP 162 / 79; Pulse 81; Resp 17; Pulse Ox 100% ; jj7 0312 00:14 BP 128 / 90; Pulse 76; Resp 15; Pulse Ox 100% ; jj7 01:00 BP 142 / 98; Pulse 76; Resp 15; Pulse Ox 100% ; jj7 02:03 BP 130 / 85; Pulse 58; Resp 17; Pulse Ox 97% ; Pain 0/10; jj7 03:00 BP 129 / 94; Pulse 65; Resp 15; Pulse Ox 100% ; jj7 04:10 BP 140 / 110; Pulse 64; Resp 15; Pulse Ox 98% ; jj7 04/17 19:43 Body Mass Index 28.19 (81.65 kg, 170.18 cm) km8 04/17 19:43 Pain Scale: Adult km8 02:03 Pain Scale: Adult jj7 [place] Coma Score: 04/17 19:43 Eye Response: spontaneous(4). Motor Response: obeys commands(6). Verbal Response: km8 confused(4). Total: 14. ED Course: 19:41 Patient arrived in ED. km8 19:42 Jagruti Winston [facility] sb4 19:42 aDnilo Atwood MD is Attending Physician. sb4 19:43 Peg Kaur, NASEEM is Primary Nurse. km8 19:43 Patient has correct armband on for positive identification. Placed in gown. Bed in low km8 position. Call light in reach. Side rails up X2. Adult w/ patient. vehicle monitor technician on. Pulse ox on. NIBP on. Door closed. Lights dimmed. Warm blanket given. 19:43 Patient maintains SpO2 saturation greater than 95% on room air. km8 19:47 Triage completed. km8 19:47 Arm band placed on right wrist. km8 20:00 One-on-one care X 15 minutes. km8 20:00 Missed attempt(s): 24 gauge in left upper arm. Bleeding controlled, band aid applied, km8 catheter tip intact. 20:03 Missed attempt(s): 22 gauge in right hand. Bleeding controlled, band aid applied, km8 catheter tip intact. 20:12 Charbel Rowley MD is Attending Physician. sp4 20:15 One-on-one care X 15 minutes. km8 20:30 One-on-one care X 15 minutes. km8 20:40 Missed attempt(s): 22 gauge in left forearm. Bleeding controlled, band aid applied, cm10 catheter tip intact. 20:45 One-on-one care X 15 minutes. km8 20:58 Initial lab(s) drawn, by me, sent to lab. Inserted saline lock: 22 gauge in left wrist, cm10 using aseptic technique. Blood collected. 21:00 One-on-one care X 15 minutes. km8 21:15 One-on-one care X 15 minutes. km8 21:20 CBC with Diff Sent. jr12 21:30 One-on-one care X 15 minutes. km8 21:40 Missed attempt(s): 20 gauge in right antecubital area. Bleeding controlled, band aid km8 applied, catheter tip intact. 21:45 One-on-one care X 15 minutes. km8 22:37 Patient moved to [place] via stretcher. km8 23:00 Consent for conscious sedation explained by staff, signed by spouse, Consent for a km8 lumbar puncture explained by staff, signed by spouse. 23:20 Inserted saline lock: 18 gauge in right EJ, using aseptic technique. ,using aseptic jj7 technique. INSERTED BY DR BRICE. 23:25 One-on-one care X 60 minutes. jj7 23:30 Assist provider with lumbar puncture: Set up LP tray. Performed by Charbel Rowley MD jj7 CSF is clear. Sample collected. Sample sent to lab. Puncture site dressed with 4X4s, TEGADERM Procedure was successful. Patient tolerated well. 04/18 00:00 Cleaned of incontinence. Linen changed. jj7 00:35 Mosqueda cath inserted, using sterile technique, 16 Fr., returned clear yellow urine. jj7 Patient tolerated well. 01:32 Transfer Center contacted at this time to initiate transfer, no answer. cm10 01:43 Transfer center contacted at this time. Spoke with Laurie and states that she will cm10 call back. 01:43 Door closed. Noise minimized. jj7 02:03 Lights dimmed. jj7 02:08 Per Laurie at transfer center, no beds available due to being at capacity. cm10 02:25 [facility] Transfer Center contacted at this time to initiate transfer. Spoke cm10 with Bob. Per Bob, they are at capacity and cannot accept. 02:35 [facility] transfer center contacted at this time. Per Darek Bell at capacity and will cm10 check clear guerrero and call back. 02:45 per Marlon at transfer center [facility] has bed will call back to initiate doc vk to doc. 03:00 per marlon patient has been accepted to [facility] [place] [id number] Delacruz. vk 03:52 Report given to NASEEM Pichardo at [facility]. cm10 04:18 initiated transport with EMS spoke with indy. 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 vk 04:52 Patient transferred, IV remains in place. jj7 Administered Medications: 04/17 20:08 Drug: Diazepam IM 10 mg IM once Route: IM; Site: right deltoid; km8 23:30 Follow up: Response: No adverse reaction jj7 21:32 Drug: Keppra IV 1000 mg IV at calculated rate once Route: IV; Rate: calculated rate; km8 Site: left wrist; 21:32 Drug: morphine IVP or IV 4 mg IVP once over 4 mins Route: IVP; Infused Over: 4 mins; km8 Site: left wrist; 23:20 Follow up: Response: No adverse reaction jj7 21:32 Drug: Ondansetron IVP 4 mg IVP once; over 2 minutes Route: IVP; Site: left wrist; km8 23:20 Follow up: Response: No adverse reaction jj7 21:32 Drug: diphenhydrAMINE IVP 25 mg IVP once Route: IVP; Site: left wrist; km8 23:20 Follow up: Response: No adverse reaction jj7 21:32 Drug: Midazolam IVP or IV 2 mg IVP once Route: IVP; Site: left wrist; km8 23:20 Follow up: Response: No adverse reaction jj7 22:21 Drug: Solu-CORTEF IVP 100 mg IVP once Route: IVP; Site: right jugular; km8 23:20 Follow up: Response: No adverse reaction jj7 22:22 Drug: Magnesium Sulfate IVPB 2 grams IVPB once over 2 hrs Route: IVPB; Infused Over: 2 km8 hrs; Site: right jugular; 04/18 00:30 Follow up: IV Status: Completed infusion jj7 04/17 22:23 Drug: Haloperidol IVP 5 mg IVP once Route: IVP; Site: right jugular; km8 23:20 Follow up: Response: No adverse reaction jj7 22:24 Drug: NS 0.9% IV 1000 ml IV at 1 bolus Per protocol; 1000 mL bolus Route: IV; Rate: 1 km8 bolus; Site: right jugular; 23:30 Follow up: IV Status: Completed infusion jj7 23:23 Drug: Etomidate IVP 20 mg IVP once Route: IVP; Site: Other; jj7 23:25 Follow up: Response: RASS: Moderate sedation (-3) jj7 23:23 Drug: Ketamine IVP 100 mg IVP once Route: IVP; Site: right jugular; jj7 23:25 Follow up: Response: RASS: Moderate sedation (-3) jj7 23:25 Follow up: Response: RASS: Moderate sedation (-3) jj7 23:50 Drug: Lidocaine Infiltration (1 %) 20 ml 20 ml Infiltration once; to bedside Volume: 20 jj7 ml; Route: Infiltration; 04/18 04:21 Follow up: Response: No adverse reaction jj7 00:14 Not Given (Physician Discretion): [id number] mg IVP once jj7 00:55 Drug: NS 0.9% IV 1000 ml IV at 250 ml/hr continuous Route: IV; Rate: 250 ml/hr; Site: [facility] Other; 04:56 Follow up: IV Status: Infusion continued upon transfer jj7 01:38 Drug: fentaNYL (PF) IVP 100 mcg IVP once Route: IVP; Site: Other; jj7 02:00 Follow up: Response: Marked relief of symptoms jj7 03:47 Drug: acetazola 500 mg IV at calculated rate bolus Route: IV; Rate: calculated rate; jj7 Site: Other; 04:20 Follow up: IV Status: Completed infusion jj7 04:07 Drug: Ketamine IVP 50 mg IVP once Route: IVP; Site: Other; jj7 04:20 Follow up: Response: Marked relief of symptoms jj7 Medication: 04/17 19:43 VIS not applicable for this client. km8 Output: 04/18 04:52 Urine: 2000ml (Mosqueda); Total: 2000ml. jj7 Outcome: 04:13 ER care complete, transfer ordered by . sp4 04:52 Transferred by ground EMS [facility]. to [facility], Transfer jj7 form completed. X-rays sent w/ patient. 04:52 Condition: improved 05:05 Patient left the ED. jj7 Signatures: Damian Ibarra, RN RN jj7 Jagruti Winston, PAMaryellenC PACharbel Jaimes MD MD sp4 Scarlett Hidalgo RN RN Allyson Carranza [facility] Peg Kaur RN RN 8 Hanna Vega Corrections: (The following items were deleted from the chart) 04/17 22:10 21:20 Test, Urine+UC.LAB.BRZ drawn and sent. jr12 EDMS 04/18 01:49 04/17 22:30 One-on-one care X 15 minutes [place] [address] 04/18 01:50 04/17 22:30 One-on-one care X 15 minutes [place] [address] 04/18 01:52 04/17 22:30 One-on-one care X 15 minutes One-on-one care X 15 minutes One-on-one care X km8 15 minutes One-on-one care X 15 minutes 8 04/18 01:52 04/17 22:30 One-on-one care X 15 minutes 8 [facility] 04/18 01:55 04/17 22:30 One-on-one care X 15 minutes [place] [address] 04/18 02:33 02:[address] [facility] contacted at this time to initiate transfer. krystal Spoke with Bob. krystal 04:25 00:13 Etomidate IVP 20 mg IVP in Other jj7 jj7 05:14 05:13 Patient left the ED. jj7 jj7
[2023-04-19 05:41] VITALS: BP 140/110; O2SAT 98
--- NOTE | 2023-04-19 13:32 | RAD REPORT ---
EXAM DESCRIPTION: CT - Head Brain Wo Cont - 04/19/2023 6:52 am CLINICAL HISTORY: SEIZURE COMPARISON: Head CT March 28, 2023 TECHNIQUE: Axial CT images of the head are obtained from the skull base to the vertex without IV con trast. Axial, sagittal, and coronal images are interpreted. This exam was performed according to our departmental dose-optimization protocol, which includes auto mated exposure control, adjustment of the mA and/or kV according to patient size and/or use of iterat raven reconstruction technique. DLP: 845.9 mGy-cm. FINDINGS: CORTEX: There is no evidence of cerebral edema, mass, mass effect, hemorrhage, or recent c ortical infarct. The chavez-white distinction is maintained. WHITE MATTER: No significant white matter disease or atrophy. BASAL GANGLIA: Basal ganglia are intact. VENTRICLES: The ventricles and subarachnoid spaces are stable. No hydrocephalus. No acute extra-axial process There is a left shunt with tip in the anterior left middle cranial fossa. Stable position compared to prior study POSTERIOR FOSSA: Cerebellar tonsils again extend to the foramen magnum which can be seen in the setti ng of Chiari malformation. Stable appearance. No mass, mass effect, hemorrhage or recent cortical i nfarct is present. The foramen magnum is normal. SKULL: No acute skull abnormality is seen. No lytic or sclerotic lesions. ORBITS, VISUALIZED PARANASAL SINUSES AND MASTOIDS: Nodular focus left maxillary sinus compatible with polyp or mucous retention cyst. No paranasal sinus air-fluid level The mastoid air cells are clear. No orbital pathology. IMPRESSION: 1. No acute intracranial process. 2. Stable position left shunt. No hydrocephalus Standardized Report: [id number]. Electronically signed by: Cameron Merritt MD 04/18/2023 10:59 PM CDT Due to temporary technical issues with the PACS/Fluency reporting system, reports are being signed by the in house radiologist without review as a courtesy to ensure prompt reporting. The interpreting r adiologist is fully responsible for the content of the report.
== END ==
LOC: ER 19:34
PROC: 009U3ZX Drainage of Spinal Canal, Percutaneous Approach, Diagnostic (ICD-10-PCS; principal; 2023-04-18)
DX: G03.0 Nonpyogenic meningitis (principal); G40.919 Epilepsy, unspecified, intractable, without status epilepticus; R83.8 Other abnormal findings in cerebrospinal fluid; Z98.2 Presence of cerebrospinal fluid drainage device; Z88.6 Allergy status to analgesic agent
CPT/HCPCS: 87070; 85025; 80048; 36415 ×2; 89050 ×2; 83735; 84703; 84157; 82945; 80076; 70450; 62270; J3475; J1953 ×2; J1630; J1200; J2250; J3360; J1720; J2405; J7030

== ENCOUNTER 2023-04-24 18:19 | Inpatient (IN) | payer OTHER ==
--- NOTE | 2023-04-24 19:42 | RAD REPORT ---
EXAM DESCRIPTION: CT - Head Brain Wo Cont - 04/24/2023 7:26 pm CLINICAL HISTORY: SEIZURE COMPARISON: Head Brain Wo Cont dated 04/18/2023; Head Brain W/Wo Con dated 03/28/2023 TECHNIQUE: Noncontrast head CT images were obtained without IV contrast. Multiplanar reformats were generated and reviewed. All CT scans are performed using dose optimization technique as appropriate and may include automated exposure control or mA/KV adjustment according to patient size. FINDINGS: Left posterior approach ventriculostomy catheter coursing along the sylvian fissure and te rminating in the middle cranial fossa, stable in appearance. No intracranial hemorrhage, mass, or edema. Ectopia of the cerebellar tonsils, stable. Midline struct ures otherwise unremarkable. Stable ventricular caliber. Gonzalez-white matter differentiation is preserved, without evidence of acute infarct. No abnormal extra- axial fluid collections. Mastoid air cells are well aerated. Polypoidal mucosal thickening in the left maxillary sinus. No acute bony findings. IMPRESSION: No evidence of an acute intracranial process. Stable findings as above.
[2023-04-24] MEDS ORDERED: ONDANSETRON 4 MG/2 ML VIAL ONE (19:52)
[2023-04-24] MEDS ORDERED: LEVETIRACETAM 500 MG/5 ML VIAL IV ONE (19:52)
[2023-04-24] MEDS ORDERED: NA CHLORIDE 0.9% 100 ML ONE (19:53)
[2023-04-24] MEDS ORDERED: MORPHINE 4 MG/ML SYR ONE (19:53)
[2023-04-24 20:31] LABS: Hematocrit 39.6 % (36.0-45.0); Hemoglobin 13.6 g/dL (12.0-15.0); MCH 28.5 pg (27.0-35.0); MCHC 34.3 g/dL (32.0-36.0); MCV 83.2 fL (80-100); MPV 8.4 fL (7.6-11.3); Platelets 308 thou/uL (152-406); RBC Red Blood Cell Count 4.76 M/uL (3.86-4.86); Red Cell Distribution Width 15.1 % (12.1-15.2)
[2023-04-24 20:48] LABS: Albumin 3.8 g/dL (3.4-5.0); Anion Gap 15.1 mEq/L (5.0-15.0); Bilirubin Total 0.5 mg/dL (0.2-1.0); Protein, Total 7.8 g/dL (6.4-8.2)
[2023-04-24 20:49] LABS: Potassium 3.1 mEq/L (3.5-5.1)
[2023-04-24 20:53] LABS: PT Prothrombin Time 12.7 SECONDS (9.5-12.5); Protime INR 1.16
--- NOTE | 2023-04-24 21:59 | ER ---
Nurse's Notes [facility] Name: Ellie Song Age: 33 yrs Sex: Female : 1990 Arrival Date: 04/24/2023 Time: 18:19 Bed 8 Private MD: Diagnosis: Other seizures;Encephalopathy, unspecified;Hypokalemia Presentation: 04/23 18:22 Chief complaint: EMS states: SZ-LIKE ACTIVITY AT HOME. Coronavirus screen: At this bp time, the client does not indicate any symptoms associated with coronavirus-19. Ebola Screen: No symptoms or risks identified at this time. Initial Sepsis Screen: Does the patient meet any 2 criteria? No. Patient's initial sepsis screen is negative. Does the patient have a suspected source of infection? No. Patient's initial sepsis screen is negative. Risk Assessment: Do you want to hurt yourself or someone else? Patient reports no desire to harm self or others. Onset of symptoms is unknown. Care prior to arrival: Glucose check: 135. 18:22 Method Of Arrival: EMS: [facility] bp 18:22 Acuity: KWAME 3 bp Triage Assessment: 18:23 General: Appears distressed, Behavior is cooperative, appropriate for age, agitated, bp anxious. Pain: Complains of pain in head. Neuro: Reports SZ ACTIVITY. Historical: - Allergies: 18:23 Ibuprofen; bp - Home Meds: 18:23 Keppra Oral [Active]; bp - PMHx: 18:23 cerebral shunt; [place] (cerebral shunt); bp - PSHx: 18:23 right arm; bp - Immunization history:: Adult Immunizations up to date. - Social history:: Smoking status: unknown. Screenin:30 [facility] ED Fall Risk Assessment (Adult) History of falling in the last 3 months, bp including since admission No falls in past 3 months (0 pts). Abuse screen: Denies threats or abuse. Denies injuries from another. Nutritional screening: No deficits noted. Tuberculosis screening: No symptoms or risk factors identified. Assessment: 18:30 General: Appears distressed, unkempt, Behavior is appropriate for age, agitated, bp anxious, uncooperative. 18:45 Reassessment: PIV PLACEMENT DECLINED BY FAMILY AND THEN PATIENT ON ARRIVAL. MD INFORMED.bp 19:07 Reassessment: Patient appears in no apparent distress at this time. Patient and/or rs5 family updated on plan of care and expected duration. Pain level reassessed. Patient is alert, oriented x 3, equal unlabored respirations, skin warm/dry/pink. 19:30 General: Appears in no apparent distress. uncomfortable, Behavior is cooperative, vc1 drowsy, flat, quiet. Pain: Complains of pain in forehead Pain does not radiate. Pain currently is 10 out of 10 on a pain scale. Quality of pain is described as pressure, Is continuous, Alleviated by rubbing area that hurts Noted to be grimacing, resistant to movement, Also complains of nausea. Neuro: [place] Agitation-Sedation Scale (RASS): -1 Drowsy Level of Consciousness is awake, lethargic, Oriented to person, place, situation, Speech is normal, Facial symmetry appears normal, Reports numbness. Cardiovascular: No deficits noted. Respiratory: Airway is patent Respiratory effort is even, unlabored, Respiratory pattern is regular, symmetrical. GI: Reports nausea. : No deficits noted. No signs and/or symptoms were reported regarding the genitourinary system. EENT: No deficits noted. No signs and/or symptoms were reported regarding the EENT system. Derm: Bruising that is brown, bruising noted to bimal hands, arms, chest. Musculoskeletal: No deficits noted. No signs and/or symptoms reported regarding the musculoskeletal system. 20:40 Reassessment: Patient and/or family updated on plan of care and expected duration. Pain vc1 level reassessed. Patient is alert, oriented x 3, equal unlabored respirations, skin warm/dry/pink. Patient states feeling better. Patient states symptoms have improved. 23:26 Reassessment: Patient appears in no apparent distress at this time. No changes from vc1 previously documented assessment. Patient and/or family updated on plan of care and expected duration. Pain level reassessed. Patient is alert, oriented x 3, equal unlabored respirations, skin warm/dry/pink. Patient states feeling better. Patient states symptoms have improved. 04/24 00:42 Reassessment: Patient appears in no apparent distress at this time. No changes from vc1 previously documented assessment. Patient and/or family updated on plan of care and expected duration. Pain level reassessed. Patient is alert, oriented x 3, equal unlabored respirations, skin warm/dry/pink. Vital Signs: 04/23 18:22 BP 135 / 80; Pulse 58; Resp 16; Temp 98; Pulse Ox 100% ; bp 19:00 BP 147 / 101; Pulse 58; Resp 16; Pulse Ox 98% ; vc1 19:27 Weight 79.38 kg; pf1 20:00 BP 149 / 93; Pulse 56; Resp 17; Pulse Ox 100% ; vc1 20:30 BP 153 / 89; Pulse 46; Resp 16; Pulse Ox 97% ; vc1 21:30 BP 165 / 104; Pulse 80; Resp 15; Pulse Ox 95% on R/A; vc1 22:30 BP 140 / 99; Pulse 54; Resp 18; Pulse Ox 97% ; vc1 23:00 BP 147 / 98; Pulse 52; Resp 16; Pulse Ox 97% ; vc1 04/24 00:00 BP 148 / 117; Pulse 73; Resp 13; Pulse Ox 97% ; vc1 00:42 BP 156 / 119; Pulse 54; Resp 15; Pulse Ox 97% ; vc1 [place] Coma Score: 04/23 18:23 Eye Response: spontaneous(4). Motor Response: obeys commands(6). Verbal Response: bp oriented(5). Total: 15. ED Course: 18:21 Patient arrived in ED. bp 18:23 Triage completed. bp 18:23 Arm band placed on. bp 18:30 Patient has correct armband on for positive identification. bp 18:33 Sukhwinder Kirk MD is Attending Physician. cp3 19:00 Seizure precautions initiated. family refused seizure precautions, stated she does not vc1 move during her seizures. 19:02 Henrry Gallegos, NASEEM is Primary Nurse. bp 19:28 CT Head Brain wo Cont In Process Unspecified. EDMS 20:07 Attending Physician role handed off by Sukhwinder Kirk MD ci 20:07 Nereyda Blanchard is Attending Physician. ci 20:15 Inserted saline lock: 22 gauge in right ,using aseptic technique. breast. vc1 20:21 Initial lab(s) drawn, by ED staff, sent to lab. vc1 20:32 Inserted saline lock: 22 gauge in right ,using aseptic technique. foot, started by Veena, vc1 RN Blood collected. 20:33 External catheter, purewick placed. vc1 20:56 Seizure pad refused. oe 21:58 Banks, Mohammad, MD is Hospitalizing Provider. ci 22:00 . oe 04/24 00:43 Provided Education on: Pain Management. vc1 00:43 No provider procedures requiring assistance completed. Patient admitted, IV remains in vc1 place. Administered Medications: 04/23 20:30 Drug: Keppra IV 20 mg/kg IV at bolus once; not to exceed 2,500 milligrams administer vc1 over 15 minutes {Note: right foot.} Route: IV; Rate: bolus; Site: Other; 20:45 Follow up: Response: No adverse reaction; Marked relief of symptoms; IV Status: pf1 Completed infusion; IV Intake: 100ml 20:31 Drug: morphine IVP or IV 2 mg IVP once over 4 mins {Note: right breast.} Route: IVP; vc1 Infused Over: 4 mins; Site: Other; 23:27 Follow up: Response: No adverse reaction; Marked relief of symptoms; Pain is decreased; vc1 RASS: Drowsy (-1) 20:31 Drug: Ondansetron IVP 4 mg IVP once; over 2 minutes {Note: right breast.} Route: IVP; vc1 Site: Other; 21:30 Follow up: Response: No adverse reaction; Marked relief of symptoms pf1 04/24 01:04 Drug: Potassium Chloride PO 40 mEq PO once Route: PO; as9 05:00 Follow up: Response: No adverse reaction; Marked relief of symptoms vc1 Medication: 04/23 20:34 VIS not applicable for this client. vc1 Intake: 20:45 IV: 100ml; Total: 100ml. pf1 Outcome: 21:59 Decision to Hospitalize by Provider. ci 04/24 00:43 Admitted to ER Hold. Please see [facility] for further documentation. vc1 Condition: good Instructed on the need for admit, 05:54 Patient left the ED. vc1 Signatures: Dispatcher [employer] Sukhwinder Simeon MD MD cp3 Tu Grady Brian RN RN bp Maria Victoria Kim RN RN vc1 Karin Krishnamurthy RN RN pf1 Christoph Carney RN RN rs5 Nereyda Blanchard Aaron RN RN as9
--- NOTE | 2023-04-24 21:59 | EDPHYS ---
Physician Documentation [facility] Name: Ellie Song Age: 33 yrs Sex: Female : 1990 Arrival Date: 04/24/2023 Time: 18:19 Bed 8 Private MD: ED Physician Nereyda Blanchard HPI: 04/23 18:48 This 33 yrs old Female presents to ER via EMS with complaints of Probable Seizure. cp3 18:48 The patient has experienced similar episodes in the past. the patient is a 33 yo female cp3 with a complicated history of new onset seizures that started in February with multiple admissions to different hospitals secondary to complications related to the complicated presentation of her seizures. the patient most recently was admitted at [facility] earlier in the month. patient's family endorses that they took her off keppra and her neurologist at [facility] advised her to resume keppra and she had her first dose today. on last ed evaluation patient had labs, and lumbar puncture. 18:48 the patient's family endorses the patient had a 20 min staring seizure. cp3 Historical: - Allergies: 18:23 Ibuprofen; bp - Home Meds: 18:23 Keppra Oral [Active]; bp - PMHx: 18:23 cerebral shunt; Chuck Holt (cerebral shunt); bp - PSHx: 18:23 right arm; bp - Immunization history:: Adult Immunizations up to date. - Social history:: Smoking status: unknown. ROS: 18:48 Constitutional: Negative for fever, chills, and weight loss, Eyes: Negative for injury, cp3 pain, redness, and discharge, ENT: Negative for injury, pain, and discharge, Neck: Negative for injury, pain, and swelling, Cardiovascular: Negative for chest pain, palpitations, and edema, Respiratory: Negative for shortness of breath, cough, wheezing, and pleuritic chest pain, Abdomen/GI: Negative for abdominal pain, nausea, vomiting, diarrhea, and constipation, Back: Negative for injury and pain, : Negative for injury, bleeding, discharge, and swelling, MS/Extremity: Negative for injury and deformity, 18:48 Psych: Negative for depression, anxiety, suicide ideation, homicidal ideation, and hallucinations, Allergy/Immunology: Negative for hives, rash, and allergies, Endocrine: Negative for neck swelling, polydipsia, polyuria, polyphagia, and marked weight changes, Hematologic/Lymphatic: Negative for swollen nodes, abnormal bleeding, and unusual bruising, 18:48 Neuro: Positive for headache, seizure activity, Exam: 18:48 Eyes: Pupils equal round and reactive to light, extra-ocular motions intact. Lids and cp3 lashes normal. Conjunctiva and sclera are non-icteric and not injected. Cornea within normal limits. Periorbital areas with no swelling, redness, or edema. ENT: Nares patent. No nasal discharge, no septal abnormalities noted. Tympanic membranes are normal and external auditory canals are clear. Oropharynx with no redness, swelling, or masses, exudates, or evidence of obstruction, uvula midline. Mucous membranes moist. Neck: Trachea midline, no thyromegaly or masses palpated, and no cervical lymphadenopathy. Supple, full range of motion without nuchal rigidity, or vertebral point tenderness. No Meningismus. Chest/axilla: Normal chest wall appearance and motion. Nontender with no deformity. No lesions are appreciated. Cardiovascular: Regular rate and rhythm with a normal S1 and S2. No gallops, murmurs, or rubs. Normal PMI, no JVD. No pulse deficits. Respiratory: Lungs have equal breath sounds bilaterally, clear to auscultation and percussion. No rales, rhonchi or wheezes noted. No increased work of breathing, no retractions or nasal flaring. Abdomen/GI: Soft, non-tender, with normal bowel sounds. No distension or tympany. No guarding or rebound. No evidence of tenderness throughout. Back: No spinal tenderness. No costovertebral tenderness. Full range of motion. Skin: Warm, dry with normal turgor. Normal color with no rashes, no lesions, and no evidence of cellulitis. MS/ Extremity: Pulses equal, no cyanosis. Neurovascular intact. Full, normal range of motion. Psych: Awake, alert, with orientation to person, place and time. Behavior, mood, and affect are within normal limits. 18:48 Constitutional: The patient appears patient seems mildy disoriented but orients to name, place, date of Vital Signs: 18:22 BP 135 / 80; Pulse 58; Resp 16; Temp 98; Pulse Ox 100% ; bp 19:00 BP 147 / 101; Pulse 58; Resp 16; Pulse Ox 98% ; vc1 19:27 Weight 79.38 kg; pf1 20:00 BP 149 / 93; Pulse 56; Resp 17; Pulse Ox 100% ; vc1 20:30 BP 153 / 89; Pulse 46; Resp 16; Pulse Ox 97% ; vc1 21:30 BP 165 / 104; Pulse 80; Resp 15; Pulse Ox 95% on R/A; vc1 22:30 BP 140 / 99; Pulse 54; Resp 18; Pulse Ox 97% ; vc1 23:00 BP 147 / 98; Pulse 52; Resp 16; Pulse Ox 97% ; vc1 04/24 00:00 BP 148 / 117; Pulse 73; Resp 13; Pulse Ox 97% ; vc1 00:42 BP 156 / 119; Pulse 54; Resp 15; Pulse Ox 97% ; vc1 Grayson Coma Score: 04/23 18:23 Eye Response: spontaneous(4). Motor Response: obeys commands(6). Verbal Response: bp oriented(5). Total: 15. MDM: 18:24 Patient medically screened. cp3 21:45 Data reviewed: vital signs, nurses notes, old medical records. ci 21:59 ED course: CT head with no acute finding. Patient significant other at bedside reports ci she has been confused, not at her baseline. Family would like to be transferred to [facility]. I discussed with family that [facility] is at capacity at this time. Family does not want to be transferred to [facility]. Patient's neurologist is Dr. Adams. Will admit for encephalopathy, seizure. Patient's case discussed with Dr. Banks who accepted patient for admission.. 04/23 18:56 Order name: CBC w/o diff; Complete Time: 21:41 cp3 04/23 21:41 Interpretation: WBC 15.00. ci 04/23 18:56 Order name: Comprehensive Metabolic Panel; Complete Time: 21:41 cp3 04/23 21:42 Interpretation: Abnormal: K 3.1. ci 04/23 18:56 Order name: PT-INR; Complete Time: 21:41 cp3 04/23 18:56 Order name: Test, Serum; Complete Time: 21:41 cp3 04/24 02:59 Order name: CBC with Automated Diff EDMS 04/24 02:59 Order name: CBC with Automated Diff EDVT 04/24 02:59 Order name: Comprehensive Metabolic Panel EDVT 04/24 02:59 Order name: Comprehensive Metabolic Panel EDVT 04/23 18:56 Order name: CT Head Brain wo Cont; Complete Time: 20:08 cp3 04/23 20:09 Interpretation: IMPRESSION: No evidence of an acute intracranial process. Stable ci findings as above. . 04/24 02:59 Order name: Brain Wo Cont EDVT 04/24 02:59 Order name: CONS Physician Consult EDVT 04/23 18:56 Order name: Saline Lock; Complete Time: 20:40 cp3 04/23 18:56 Order name: Neurovascular Checks; Complete Time: 20:30 cp3 Administered Medications: 20:30 Drug: Keppra IV 20 mg/kg IV at bolus once; not to exceed 2,500 milligrams administer vc1 over 15 minutes {Note: right foot.} Route: IV; Rate: bolus; Site: Other; 20:45 Follow up: Response: No adverse reaction; Marked relief of symptoms; IV Status: pf1 Completed infusion; IV Intake: 100ml 20:31 Drug: morphine IVP or IV 2 mg IVP once over 4 mins {Note: right breast.} Route: IVP; vc1 Infused Over: 4 mins; Site: Other; 23:27 Follow up: Response: No adverse reaction; Marked relief of symptoms; Pain is decreased; vc1 RASS: Drowsy (-1) 20:31 Drug: Ondansetron IVP 4 mg IVP once; over 2 minutes {Note: right breast.} Route: IVP; vc1 Site: Other; 21:30 Follow up: Response: No adverse reaction; Marked relief of symptoms pf1 04/24 01:04 Drug: Potassium Chloride PO 40 mEq PO once Route: PO; as9 05:00 Follow up: Response: No adverse reaction; Marked relief of symptoms vc1 Disposition Summary: 04/24/23 21:59 Hospitalization Ordered Notes: Hospitalization Status: Inpatient Admission ci Provider: María Banks Condition: Stable ci Problem: an acute exacerbation ci Symptoms: have worsened ci Bed/Room Type: Standard ci Location: Telemetry/MedSurg (Inpatient)(04/25/23 03:38) cg Room Assignment: [facility](04/25/23 03:38) cg Diagnosis - Other seizures ci - Encephalopathy, unspecified ci - Hypokalemia ci Forms: - Medication Reconciliation Form ci - SBAR form ci - Leadership Thank You Letter ci Signatures: Dispatcher [employer] Sukhwinder Simeon MD MD cp3 Ivy Melvin, RN RN cg Henrry Gallegos RN RN Maria Victoria Groves RN RN vc1 Lo E[employer] ci Oswaldo Tsai RN RN as9 Krain Krishnamurthy RN pf1 Corrections: (The following items were deleted from the chart) 04/23 20:34 18:56 Seizure Precautions ordered. cp3 vc1 04/24 03:11 04/23 21:59 Telemetry/MedSurg (observation) ci vc1 04/24 03:11 04/23 21:59 ci vc1 04/24 03:11 03:11 vc1 vc1 03:38 03:11 [facility] ER HOLD vc1 cg 03:38 03:11 ERHOLD- vc1 cg
[2023-04-24] MEDS ORDERED: POTASSIUM CL SA 10 MEQ TAB PO ONE (22:47)
[2023-04-25] MEDS: MORPHINE 2 MG/ML SYR IV ONE (00:30)
[2023-04-25] MEDS: METHYLPREDNISOLONE 125 MG INJ IV ONE (00:30)
[2023-04-25] MEDS ORDERED: METHYLPREDNISOLONE 125 MG INJ ONE (00:40)
[2023-04-25] MEDS ORDERED: MORPHINE 2 MG/ML SYR ONE ×2 (00:41→05:02)
[2023-04-25 03:40] VITALS: BMI 28.1
--- NOTE | 2023-04-25 03:50 | P.HP ---
Certification for Inpatient Patient admitted to: Observation With expected LOS: <2 Midnights Patient will require the following post-hospital care: None Practitioner: I am a practitioner with admitting privileges, knowledge of patient current condition, hospital course, and medical plan of care. Services: Services provided to patient in accordance with Admission requirements found in Title 42 Section 412.3 of the Code of Federal Regulations Patient History Date of Service: 04/25/23 Reason for admission: Seizure disorder/absence seizure History of Present Illness: Patient is a 33-year-old female who came to the hospital with seizure disorder. Patient apparently has episodes where she starts staring and unable to see anything. Her pupils dilated and she has lateral nystagmus and then she goes into a postictal state. Patient has had 4 different seizures since the beginning of the year. Patient has been to [facility] on 2 different occasions, and patient has gone to [facility] on 1 occasion. Patient was told at [facility] that she possibly had optic neuritis. 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 She was given IgG and a few days later she started doing better. Few weeks later she had a another recurrence and ended up at [facility] once again. At this time she had a lumbar puncture which revealed elevated CSF opening pressure of 33. Patient also had elevated protein. She was given IV steroids and she was doing better. However she was still seeing a lot of darkness afterwards she was referred to a retinal specialist with no intervention. There was no signs of retinal detachment. Patient was also seen at [facility] according to the . Patient was discharged on acetazolamide. It was felt patient may have intracranial hypertension. Currently, patient is still scheduled to follow-up with neurology, rheumatology, and ophthalmology for further treatment. Patient came into the emergency room on this admission, and we found patient to have a similar recurrence. We have gone ahead and given patient Keppra and IV steroids. I did attempt for patient to go to [facility], but they are at capacity. Will try again in the morning. I also attempted to transfer patient to [facility] patient's family does not want to go to [facility]. At this time they are requesting to be admitted to our facility, patient is more awake and alert. However, they felt patient needed to go to ICU and they did not have an ICU bed. Patient will be admitted to our facility pending bed availability at [facility]. Allergies ibuprofen Allergy (Verified 04/25/23 02:29) Anaphylaxis Home Medications: Mesalamine 3 tab PO DAILY 04/25/23 Norethindrone [Khadijah] 0.35 mg PO DAILY 04/25/23 acetaZOLAMIDE [Diamox] 500 mg PO BID 04/25/23 - Past Medical/Surgical History -: Abscence seizures -: Optic neuritis -: TILE AND MARBLE INSTALLER shunt - Family History Father Family History: Reviewed- Non-Contributory - Social History Smoking Status: Former smoker Alcohol use: No CD- Drugs: No Review of Systems 10-point ROS is otherwise unremarkable Physical Examination - Vital Signs Temperature: 98 F Blood Pressure: 150/80 Pulse: 90 Respirations: 18 Pulse Ox (%): 96 - Physical Exam General: Alert, In no apparent distress, Oriented x3 HEENT: Atraumatic, PERRLA, Mucous membr. moist/pink, EOMI, Sclerae nonicteric Neck: Supple, 2+ carotid pulse no bruit, No LAD, Without JVD or thyroid abnormality Respiratory: Diminished Cardiovascular: Regular rate/rhythm, Normal S1 S2, No murmurs Gastrointestinal: Normal bowel sounds, Soft and benign, Non-distended, No tenderness Musculoskeletal: No clubbing, No swelling, No tenderness Integumentary: No rashes Neurological: Normal speech, Normal strength at 5/5 x4 extr, Normal tone, Sensation intact, Cranial nerves 3-12 intact, Normal affect Lymphatics: No axilla or inguinal lymphadenopathy - Studies Laboratory Data (last 24 hrs) 04/24/23 04/24/23 04/24/23 20:21 20:21 20:21 WBC 15.00 H Hgb 13.6 Hct 39.6 Plt Count 308 PT 12.7 H INR 1.16 Sodium 138 Potassium 3.1 L BUN 14 Creatinine 0.71 Glucose 200 H Total Bilirubin 0.5 AST 52 H ALT 110 H Alkaline Phosphatase 96 Assessment & Plan - Problems (Diagnosis) (1) Seizure disorder Current Visit: Yes Status: Acute (2) Optic neuritis Current Visit: Yes Status: Acute (3) S/P TILE AND MARBLE INSTALLER shunt Current Visit: Yes Status: Acute (4) Cyst, arachnoid Current Visit: Yes Status: Acute - Plan Plan: 1. Continue with antiepileptics 2. Continue with IV steroids 3. Continue with neurology consultation 4. Possible MRI of the brain 5. GI/DVT prophylaxis Discharge Plan: Home Plan to discharge in: Greater than 2 days - Advance Directives Does patient have a Living Will: No Does patient have a Durable POA for Healthcare: No - Code Status/Comfort Care Code Status Assessed: Yes Code Status: Full Code Critical Care: No Time Spent Managing PTS Care (In Minutes): 45
[2023-04-25] MEDS ORDERED: NA CHLORIDE 0.9% 1,000 ML ONE (03:58)
[2023-04-25] MEDS: NA CHLORIDE 0.9% 1,000 ML IV SCH (04:00)
[2023-04-25] MEDS: MORPHINE 2 MG/ML SYR IV PRN (05:06)
[2023-04-25 06:56] VITALS: O2SAT 97
[2023-04-25 07:38] LABS: Absolute Lymphocytes (CBC) 1.5 K/uL (0.7-4.9); Absolute Monocytes 0.2 K/uL (0.1-1.3); Absolute Neutrophil 15.8 K/uL (1.8-8.0); Hematocrit 38.7 % (36.0-45.0); Hemoglobin 13.2 g/dL (12.0-15.0); Lymphocytes % 8.3 % (15.3-44.8); MCH 28.4 pg (27.0-35.0); MCHC 34.2 g/dL (32.0-36.0); MCV 83.2 fL (80-100); MPV 9.4 fL (7.6-11.3); Monocytes % 0.9 % (3.3-12.3); Neutrophils % 90.8 % (41.7-73.7); Platelets 298 thou/uL (152-406); RBC Red Blood Cell Count 4.65 M/uL (3.86-4.86)
[2023-04-25 08:01] LABS: Albumin 3.8 g/dL (3.4-5.0); Anion Gap 15.1 mEq/L (5.0-15.0); Bilirubin Total 0.4 mg/dL (0.2-1.0); Magnesium 2.3 mg/dL (1.6-2.4); Potassium 3.1 mEq/L (3.5-5.1); Protein, Total 7.8 g/dL (6.4-8.2); Thyroid Stimulating Hormone 0.519 uIU/mL (0.358-3.740)
[2023-04-25] MEDS: ACETAMINOPHEN 500 MG TAB PO PRN (08:12)
[2023-04-25] MEDS: NORETHINDRONE 0.35 MG PO SCH (09:00)
[2023-04-25 09:02] LABS: Band Neutrophils 1 % (0-1); Blood Morphology Comment NOT SEEN (NOT SEEN); Differential Total Cells Count 100; Lymphocytes 12 % (15-42); Monocytes 0 % (0-10); Platelet Estimate ADEQ; Segmented Neutrophils 87 % (40-80)
[2023-04-25] MEDS: POTASSIUM CL SA 10 MEQ TAB PO SCH (10:17)
[2023-04-25] MEDS: acetaZOLAMIDE 250 MG TAB PO SCH (10:17)
[2023-04-25] MEDS: MESALAMINE 400 MG CAPSULE.DR PO SCH (10:18)
[2023-04-25] MEDS: METHYLPREDNISOLONE 125 MG INJ IV SCH (10:19)
[2023-04-25] MEDS: levETIRAcetam 500 MG in NA CHLORIDE 0.9% 100 ML IV SCH (10:19)
--- NOTE | 2023-04-25 11:05 | RAD REPORT ---
EXAM DESCRIPTION: MRI - Brain Wo Cont - 04/25/2023 10:31 am CLINICAL HISTORY: Seizure disorder COMPARISON: Head Brain W Cont dated 02/07/2023 outside brain MRI 04/25/23 TECHNIQUE: Sagittal T1-weighted images were obtained along with PD/heavily T2-weighted and T2-FLAIR images. Axial DWI and ADC mapping sequences were also obtained along with coronal heavily T2-weighted images were obtained. FINDINGS: No intracranial hemorrhage, mass or acute infarction. There is no edema or shift of midlin e structures. No extra-axial fluid collections. Signal voids are seen as a normal finding in the perla r intracranial vessels. No significant white matter disease. Chiari malformation noted at the posteri or cranial fossa. Left parietal approach shunt which traverses the left temporal lobe and terminates at the left middle cranial fossa. Mastoid air cells and paranasal sinuses are clear. IMPRESSION: No acute intracranial abnormality. Chiari 1 malformation. Left parietal approach shunt w ith tip at the left middle cranial fossa.
[2023-04-25] MEDS: ONDANSETRON 4 MG/2 ML VIAL IV PRN (15:24)
--- NOTE | 2023-04-25 15:43 | P.DS ---
Admission Date: 04/25/23 Discharge Date: 04/25/23 Reason for Admission: Seizure disorder/absence seizure Brief History of Present Illness: 33-year-old female who came to the hospital with seizure disorder. Patient apparently has episodes where she starts staring and unable to see anything. Her pupils dilated and she has lateral nystagmus and then she goes into a postictal state. Patient has had 4 different seizures since the beginning of the year. Patient has been to [facility] on 2 different occasions, and patient has gone to [facility] on 1 occasion. Patient was told at [facility] that she possibly had optic neuritis. 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 She was given IgG and a few days later she started doing better. Few weeks later she had a another recurrence and ended up at [facility] once again. At this time she had a lumbar puncture which revealed elevated CSF opening pressure of 33. Patient also had elevated protein. She was given IV steroids and she was doing better. However she was still seeing a lot of darkness afterwards she was referred to a retinal specialist with no intervention. There was no signs of retinal detachment. Patient was also seen at [facility] according to the . Patient was discharged on acetazolamide. It was felt patient may have intracranial hypertension. Currently, patient is still scheduled to follow-up with neurology, rheumatology, and ophthalmology for further treatment. Patient came into the emergency room on this admission, and we found patient to have a similar recurrence. We have gone ahead and given patient Keppra and IV s teroids. I did attempt for patient to go to [facility], but they are at capacity. Will try again in the morning. I also attempted to transfer patient to [facility] patient's family does not want to go to [facility]. At this time they are requesting to be admitted to our facility, patient is more awake and alert. However, they felt patient needed to go to ICU and they did not have an ICU bed. Patient will be admitted to our facility pending bed availability at [facility]. - Physical Exam General: Alert, In no apparent distress, Oriented x3 HEENT: Atraumatic, PERRLA, Mucous membr. moist/pink, EOMI, Sclerae nonicteric Neck: Supple, 2+ carotid pulse no bruit, No LAD, Without JVD or thyroid abnormality Respiratory: Diminished Cardiovascular: Regular rate/rhythm, Normal S1 S2, No murmurs Gastrointestinal: Normal bowel sounds, Soft and benign, Non-distended, No tenderness Musculoskeletal: No clubbing, No swelling, No tenderness Integumentary: No rashes Neurological: Normal speech, Normal strength at 5/5 x4 extr, Normal tone, Sensation intact, Cranial nerves 3-12 intact, Normal affect Lymphatics: No axilla or inguinal lymphadenopathy Hospital Course: 33 year-old female patient with a past medical history of reported increased intracranial hypertension status post ROCK DUST SPRAYER shunt, seizure disorder, possible optic neuritis, presented with seizure disorder presented with . Was seizure. Noted to be postictal. Plan to transfer for patient's neurology, evp head of [employer] strategy at [facility] in the [facility] for higher level of care. She has had multiple lumbar prior punctures. Patient treated with IV Keppra for seizure. As needed analgesics for migraines, steroids for possible optic neuritis. She was evaluated by neurology. Patient was unable to tolerate MRI of the brain due to headache. PROBLEM: Seizure disorder postictal Migraine Increased intracranial pressure status post ROCK DUST SPRAYER shunt Arachnoid cyst suspected optic neuritis Will need to follow-up with neurology after hospital discharge Will need to follow-up with ophthalmology after discharge 04/24 brain MRI Mastoid air cells and paranasal sinuses are clear. IMPRESSION: No acute intracranial abnormality. Chiari 1 malformation. Left parietal approach shunt with tip at the left middle cranial fossa. 04/23 CT head IMPRESSION: No evidence of an acute intracranial process. Stable findings as above. Continue home medicines as previously prescribed GOAL: Clear understanding of disease process INSTRUCTIONS: Physician Discharge Instructions: -Follow-up with PCP in 1 to 2 weeks after discharge from acute care -Please call if any questions regarding hospital stay -Please call nursing station at [phone] if any nursing or medication questions -Return to the emergency room if symptoms worsen Diet: ADA, low sodium Activity: Fall precautions <Tara Boggs - Last Filed: 04/25/23 15:31> Admission Date: 04/25/23 Discharge Date: 04/25/23 Hospital Course: Pt seen and examined. I agree with the note by the [facility]. Pt presented with seizure disorder and increased intracranial presure. We started steroid and keppra for possible optic neuritis. MRI brain is unremarkable, it showed Chiari 1 malformation. Left parietal approach shunt with tip at the left middle cranial fossa. We later transferred pt to [facility] for evaluation neurology eval. <Jim Rose - Last Filed: 04/25/23 16:07> Disposition: TRANSFER TO [facility] Discharge Condition: FAIR Vital Signs/Physical Exam: Temp Pulse Resp BP Pulse Ox 98.2 F 56 16 141/81 H 99 04/25/23 12:00 04/25/23 12:00 04/25/23 12:00 04/25/23 12:00 04/25/23 12:00 Laboratory Data at Discharge: WBC 17.40 thou/uL (4.3-10.9) H 04/25/23 06:35 Hgb 13.2 g/dL (12.0-15.0) 04/25/23 06:35 Hct 38.7 % (36.0-45.0) 04/25/23 06:35 Plt Count 298 thou/uL (152-406) 04/25/23 06:35 PT 12.7 SECONDS (9.5-12.5) H 04/24/23 20:21 INR 1.16 04/24/23 20:21 Sodium 137 mEq/L (136-145) 04/25/23 06:35 Potassium 3.1 mEq/L (3.5-5.1) L 04/25/23 06:35 BUN 11 mg/dL (7-18) 04/25/23 06:35 Creatinine 0.63 mg/dL (0.55-1.02) 04/25/23 06:35 Glucose 174 mg/dL (74-106) H 04/25/23 06:35 Magnesium 2.3 mg/dL (1.6-2.4) 04/25/23 06:35 Total Bilirubin 0.4 mg/dL (0.2-1.0) 04/25/23 06:35 AST 28 U/L (15-37) 04/25/23 06:35 ALT 104 U/L (13-56) H 04/25/23 06:35 Alkaline Phosphatase 93 U/L (45-117) 04/25/23 06:35 <Tara Boggs Last Filed: 04/25/23 15:31> Vital Signs/Physical Exam: Temp Pulse Resp BP Pulse Ox 98.2 F 56 16 141/81 H 99 04/25/23 12:00 04/25/23 12:00 04/25/23 12:00 04/25/23 12:00 04/25/23 12:00 Laboratory Data at Discharge: WBC 17.40 thou/uL (4.3-10.9) H 04/25/23 06:35 Hgb 13.2 g/dL (12.0-15.0) 04/25/23 06:35 Hct 38.7 % (36.0-45.0) 04/25/23 06:35 Plt Count 298 thou/uL (152-406) 04/25/23 06:35 PT 12.7 SECONDS (9.5-12.5) H 04/24/23 20:21 INR 1.16 04/24/23 20:21 Sodium 137 mEq/L (136-145) 04/25/23 06:35 Potassium 3.1 mEq/L (3.5-5.1) L 04/25/23 06:35 BUN 11 mg/dL (7-18) 04/25/23 06:35 Creatinine 0.63 mg/dL (0.55-1.02) 04/25/23 06:35 Glucose 174 mg/dL (74-106) H 04/25/23 06:35 Magnesium 2.3 mg/dL (1.6-2.4) 04/25/23 06:35 Total Bilirubin 0.4 mg/dL (0.2-1.0) 04/25/23 06:35 AST 28 U/L (15-37) 04/25/23 06:35 ALT 104 U/L (13-56) H 04/25/23 06:35 Alkaline Phosphatase 93 U/L (45-117) 04/25/23 06:35 <Jim Rose - Last Filed: 04/25/23 16:07> Time spent managing pt's care (in minutes): 55 <Tara Boggs - Last Filed: 04/25/23 15:31> <Jim Rose - Last Filed: 04/25/23 16:07> Home Medications: Mesalamine 3 tab PO DAILY 04/25/23 Methylpred Na Suc [Solu-Medrol*] 125 mg IV Q6HR vial 04/25/23 Norethindrone [Khadijah] 0.35 mg PO DAILY 04/25/23 Norethindrone [Khadijah] 0.35 mg PO DAILY 04/25/23 Ondansetron [Zofran*] 4 mg IV Q4H PRN vial 04/25/23 acetaZOLAMIDE [Diamox*] 500 mg PO BID 04/25/23 levETIRAcetam [Keppra Inj] 500 mg IV Q12H #60 ml 04/25/23 New Medications: levETIRAcetam [Keppra Inj] 500 mg IV Q12H #60 ml Physician Discharge Instructions: 33 year-old female patient with a past medical history of reported increased intracranial hypertension status post ROCK DUST SPRAYER shunt, seizure disorder, possible optic neuritis, presented with seizure disorder presented with . Was seizure. Noted to be postictal. Plan to transfer for patient's neurology, evp head of [employer] experience strategy at [facility] in the [facility] for higher level of care. She has had multiple lumbar prior punctures. Patient treated with IV Keppra for seizure. As needed analgesics for migraines, steroids for possible optic neuritis. She was evaluated by neurology. Patient was unable to tolerate MRI of the brain due to headache. PROBLEM: Seizure disorder postictal Migraine Increased intracranial pressure status post ROCK DUST SPRAYER shunt Arachnoid cyst suspected optic neuritis Will need to follow-up with neurology after hospital discharge Will need to follow-up with ophthalmology after discharge 04/24 brain MRI Mastoid air cells and paranasal sinuses are clear. IMPRESSION: No acute intracranial abnormality. Chiari 1 malformation. Left parietal approach shunt with tip at the left middle cranial fossa. 04/23 CT head IMPRESSION: No evidence of an acute intracranial process. Stable findings as above. Continue home medicines as previously prescribed GOAL: Clear understanding of disease process INSTRUCTIONS: Physician Discharge Instructions: -Follow-up with PCP in 1 to 2 weeks after discharge from acute care -Please call if any questions regarding hospital stay -Please call nursing station at [phone] if any nursing or medication questions -Return to the emergency room if symptoms worsen Diet: ADA, low sodium Activity: Fall precautions Followup: NONE,NONE [Primary Care Provider] - (Follow-up with patient's neurology after hospital discharge Follow-up with patient's evp head of [employer] strategy after discharge)
[2023-04-25] MEDS: PROCHLORPERAZINE 5 MG TAB PO ONE (18:43)
[2023-04-25] MEDS: DIPHENHYDRAMINE 25 MG TAB/CAP PO ONE (18:43)
[2023-04-25] MEDS: KETOROLAC 30 MG/ML INJ IV ONE (18:43)
--- NOTE | 2023-04-26 00:53 | CON ---
Reason For Consultation: Consultation called because of seizure. History Of Present Illness: Ms. 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 Information was gathered from the patient's , chart re view, and the patient herself, who did provide some limited information. She reportedly came to [facility] on 04/25/2023 with staring, unable to reportedly see anything. She had lateral nysta gmus and went into a postictal state of poor responsiveness. Per the patient's , she had a round 4 events this year and was seen at [facility] on multiple occasions and [facility] on 1 occasion. 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 She did receive IVIG and symptoms seemed to improve a few days later. However, another few weeks after that she had a recurrent episode and was seen again at [facility] where a lumbar puncture revealed elevated CSF opening pressure of around 33 . She was treated with steroids and seemed to improve somewhat. However, since then, she has had is sues of seeing darkness and has been evaluated by a retina specialist with no clear diagnosis marc victor. She was seen at the [facility] and was eventually discharged on acetazolamide. She w as then diagnosed with the intracranial hypertension. She came back to the [facility] after having a similar potential seizure-like episode. She received Keppra, IV steroids and the plan is t o transfer the patient to [place] where her neurologist and retina specialist are available. At this point, at my interaction, the patient did begin to answer some questions, but seemed to be somewhat agitated and did have what appeared to be migraine headaches. The patient has had a strong family hi story of migraines including multiple family members and diagnosis of complicated migraine may potent ially be entertained. 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 Allergies: IBUPROFEN. Medications: At home: Mesalamine 3 tablets daily, norethindrone 0.35 mg daily, acetazolamide 500 mg twice daily. Family History: Strong family history of migraines. Social History: Smoked in the past. No alcohol or IV drug use. Review of Systems: Unable to get a clear review of systems from the patient at this point. Physical Examination: Vital Signs: Blood pressure 143/90, pulse , respiratory rate 15, temperature 98.8, oxygen saturation 99%. Weight 180 pounds, height 5 feet 7 inches, BMI 28.2. General: Ms. Song is resting in bed. She did arise, respond, and then seemed to hold her head, co mplaining of headache. Neurologic: She did not have any obvious focal cranial nerve deficits. No focal asymmetry in terms of facial appearance. Movement of arms and legs appears symmetric. Unable to fully assess sensation , coordination, balance. Laboratory Studies: White blood cell count was elevated to 17.4 with 90.8% neutrophils, hemoglobin 1 3.2, hematocrit 38.7. INR 1.16. Her sodium 137, potassium 3.1, chloride 107, carbon dioxide 18, cre atinine 0.63, glucose 174, calcium 10.0, magnesium 2.3, AST 28, ALT 104, alkaline phosphatase 93. TS H 0.519, free T4 1.19, prolactin is pending, and a test is negative. Brain MRI shows no ac nicky intracranial abnormalities. 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 There is left parietal approach jonathan nt with the tip of the shunt in the left middle cranial fossa. Assessment: Ms. 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 She does appear to have a history of migraines and may have complicated migraines including in her differential. Plan: The patient is currently on a regimen of Keppra 500 mg every 12 hours that may continue. She has Diamox 500 mg twice daily in addition to receiving the Solu-Medrol 125 mg every 6 hours. She has morphine for pain and received normal saline hydration and Zofran for nausea. She may follow up with her physicians in [place]. PATIENCE/VINAYAK Voice ID: [id number] Report ID: [id number]
[2023-04-26 01:08] VITALS: BP 195/84; TEMP 97.6
--- NOTE | 2023-04-26 14:12 | EKG ---
Test Date: 2023-04-24 Test Time: 17:28:45 Hot Dog Vendor: DAVID MEASUREMENT RESULTS: Intervals: Rate: 57 KS: 154 QRSD: 86 QT: 456 QTc: 443 [place]: P: 57 KS: 154 QRS: 68 T: 62 INTERPRETIVE STATEMENTS: Sinus bradycardia Otherwise normal ECG Compared to ECG 04/18/2023 20:10:22 Sinus arrhythmia no longer present Electronically Signed On 04-26-23 14:06:53 CDT by Fidencio Bell
== END 2023-04-26 00:35 | disposition short-term general hospital (02) | DRG 101 ==
LOC: ER 18:19 → ERHOLD 04-25 02:54 → 4TH 04-25 04:09
PROVIDERS: ADMIT Hospitalist; ATTEND Hospitalist
DX: G40.909 Epilepsy, unspecified, not intractable, without status epilepticus (principal); H46.9 Unspecified optic neuritis; E87.6 Hypokalemia; G93.0 Cerebral cysts; G43.909 Migraine, unspecified, not intractable, without status migrainosus; Z88.8 Allergy status to other drugs, medicaments and biological substances; Z79.899 Other long term (current) drug therapy; Z87.891 Personal history of nicotine dependence
CPT/HCPCS: 36415; 70450; 70551; 80053; 83735; 84146; 84439; 84443; 84703; 85025; 85027; 85610; 93005; 96374; 96375; 99285; J1953; J2270; J2405; J2930; J7030; Q0164

== ENCOUNTER 2023-06-15 13:41 | Emergency (ER) | payer OTHER ==
[2023-06-15] MEDS ORDERED: DIPHENHYDRAMINE 50 MG/ML VIAL ONE (14:06)
[2023-06-15] MEDS ORDERED: METOCLOPRAMIDE 10 MG/2mL INJ ONE (14:06)
[2023-06-15 14:26] LABS: Absolute Lymphocytes (CBC) 4.6 K/uL (0.7-4.9); Absolute Monocytes 0.7 K/uL (0.1-1.3); Absolute Neutrophil 4.1 K/uL (1.8-8.0); Basophils % 0.5 % (0-1.3); Eosinophils % 0.5 % (0-4.4); Hematocrit 36.4 % (36.0-45.0); Hemoglobin 12.1 g/dL (12.0-15.0); Lymphocytes % 48.3 % (15.3-44.8); MCH 28.5 pg (27.0-35.0); MCHC 33.1 g/dL (32.0-36.0); MCV 85.9 fL (80-100); MPV 8.5 fL (7.6-11.3); Monocytes % 7.7 % (3.3-12.3); Nucleated Red Blood Cells % 0.3 % (0-0); Platelets 263 thou/uL (152-406); RBC Red Blood Cell Count 4.24 M/uL (3.86-4.86); Red Cell Distribution Width 16.1 % (12.1-15.2)
--- NOTE | 2023-06-15 14:27 | RAD REPORT ---
EXAM DESCRIPTION: CT - Head Brain Wo Cont - 06/15/2023 2:17 pm CLINICAL HISTORY: seizure, headache COMPARISON: Head Brain Wo Cont dated 04/24/2023; Head Brain Wo Cont dated 04/18/2023; Brain Wo Cont da nikhil 04/25/2023 TECHNIQUE: All CT scans are performed using dose optimization technique as appropriate and may inclu de automated exposure control or mA/KV adjustment according to patient size. FINDINGS: Motion artifact is present limiting assessment. There is a right frontal ventriculostomy t ube noted. There is additional tracheostomy tube on the left which terminates in the anterior aspect of the left middle cranial fossa.No bleed is seen. No hydrocephalus or midline shift. The paranasal sinuses and mastoids are clear. The calvarium is intact. IMPRESSION: No acute intracranial abnormality. Right frontal ventriculostomy tube terminates in the region of the third ventricle. The ventricular system is diminutive without evidence of hydrocephalu s.
--- NOTE | 2023-06-15 14:28 | RAD REPORT ---
EXAM DESCRIPTION: CT - Abdomen Pelvis Wo Contrast - 06/15/2023 2:18 pm CLINICAL HISTORY: Abdominal pain. ABD PAIN COMPARISON: No comparisons TECHNIQUE: CT imaging of the abdomen and pelvis was performed without contrast. Solid organ, bowel a nd vascular assessment is limited due to lack of IV and oral contrast. All CT scans are performed using dose optimization technique as appropriate and may include automated exposure control or mA/KV adjustment according to patient size. FINDINGS: The lower lung cuevas are clear. The liver, spleen, pancreas, adrenal glands and kidneys are within normal limits for a limited non-co ntrast examination. No bowel obstruction, free air, or abscess. Catheter tubing pelvis. Moderate pelvic free fluid. The a ppendix is normal. The osseous structures are within normal limits. IMPRESSION: No acute intra-abdominal or pelvic findings. A limited non-contrast examination was performed as detailed.
[2023-06-15] MEDS ORDERED: LEVETIRACETAM 500 MG/5 ML VIAL IV ONE (15:20)
[2023-06-15] MEDS ORDERED: LORazepam 2 MG/ML VIAL ONE (15:20)
[2023-06-15] MEDS ORDERED: NA CHLORIDE 0.9% 100 ML ONE (15:21)
[2023-06-15 15:39] LABS: ALT/SGPT 55 U/L (13-56); AST/SGOT 16 U/L (15-37); Albumin 3.6 g/dL (3.4-5.0); Alkaline Phosphatase 69 U/L (45-117); Anion Gap 13.1 mEq/L (5.0-15.0); BUN Blood Urea Nitrogen 10 mg/dL (7-18); Bicarbonate 20 mEq/L (21-32); Bilirubin Total 0.3 mg/dL (0.2-1.0); Globulin 3.6 g/dL (2.3-3.5); Glomerular Filtration Rate 99 ml/min (=/>90); Glucose Level 169 mg/dL (74-106); Potassium 3.1 mEq/L (3.5-5.1); Protein, Total 7.2 g/dL (6.4-8.2); Sodium Level 135 mEq/L (136-145); Troponin High Sensitivity 19.9 pg/mL (<58.9)
[2023-06-15 15:48] LABS: Bilirubin Direct < 0.2 mg/dL (0-0.2); Bilirubin Indirect, Calculated 0.1 mg/dL (0.2-0.8)
[2023-06-15] MEDS ORDERED: KETOROLAC 30 MG/ML INJ ONE (16:09)
[2023-06-15] MEDS ORDERED: NA CHLORIDE 0.9% 1,000 ML ONE (16:25)
--- NOTE | 2023-06-15 17:34 | RAD REPORT ---
EXAM DESCRIPTION: CT - Head angio - 06/15/2023 5:24 pm CLINICAL HISTORY: WEAKNESS Headache, drowsiness COMPARISON: Head Brain Wo Cont dated 06/15/2023; Head Brain Wo Cont dated 04/24/2023 TECHNIQUE: CT angiography of the head was performed with MIPs. All CT scans are performed using dose optimization technique as appropriate and may include automated exposure control or mA/KV adjustment according to patient size. FINDINGS: No evidence of large vessel occlusion. No evidence of aneurysm is detected. No flow-limiti ng stenosis or vascular malformation identified. Right frontal and left temporal ventriculostomy tube s. Antegrade flow is seen in the vertebral arteries. The vertebral arteries are codominant. The visualized dural venous sinuses are patent. IMPRESSION: No significant flow abnormality is detected.
--- NOTE | 2023-06-15 17:36 | RAD REPORT ---
EXAM DESCRIPTION: CT - Neck Angio - 06/15/2023 5:24 pm CLINICAL HISTORY: weakness Headache, drowsiness COMPARISON: Head C Spine Mpr Wo Con dated 02/07/2023 TECHNIQUE: CT angiography of the neck vessels was performed with MIPs. All CT scans are performed using dose optimization technique as appropriate and may include automated exposure control or mA/KV adjustment according to patient size. FINDINGS: A left aortic arch is identified with normal three vessel configuration of the great vesse ls. No significant flow abnormality is seen of the common carotid bilaterally. No significant stenosis is identified involving the cervical segments of both internal carotid arteri es. Normal flow is seen within both vertebral arteries. IMPRESSION: No significant flow abnormality of the neck vessels is identified. NASCET criteria used. Mild 0-49% stenosis Moderate 50-69% stenosis Severe 70-99% stenosis
--- NOTE | 2023-06-15 18:15 | ER ---
Nurse's Notes [facility] Name: Ellie Song Age: 33 yrs Sex: Female : 1990 Arrival Date: 06/15/2023 Time: 13:41 Bed 6 Private MD: Diagnosis: Seizure;Headache Presentation: 06/14 13:46 Chief complaint: Spouse and/or significant other states: seizure X 15 min , hx of iw nonepileptic seizures due to sever migraines. 13:46 Method Of Arrival: Wheelchair iw 13:46 Acuity: KWAME 2 iw 13:47 Coronavirus screen: At this time, the client does not indicate any symptoms associated iw with coronavirus-19. Ebola Screen: No symptoms or risks identified at this time. Risk Assessment: Do you want to hurt yourself or someone else? Patient reports no desire to harm self or others. Onset of symptoms was June 15, 2023. 19:33 Initial Sepsis Screen: Does the patient meet any 2 criteria? No. Patient's initial cp4 sepsis screen is negative. Does the patient have a suspected source of infection? No. Patient's initial sepsis screen is negative. Triage Assessment: 13:47 General: Appears uncomfortable, Behavior is listless. Pain: Unable to use pain scale. iw FLACC scale score is 3 out of 10. Neuro: Level of Consciousness is awake, confused. 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 - Infectious Disease History:: Denies. CDIFF, C. Auris, ESBL, MRSA (w/in 1 year), VRE (w/in 1 year), TB, . - Family history:: not pertinent. - Social history:: Smoking status: Patient denies any tobacco usage or history of. Screenin:18 [facility] ED Fall Risk Assessment (Adult) History of falling in the last 3 months, cp4 including since admission No falls in past 3 months (0 pts) Confusion or Disorientation No (0 pts) Intoxicated or Sedated No (0 pts) Impaired Gait No (0 pts) Mobility Assist Device Used No (0 pt) Altered Elimination No (0 pt) Score/Fall Risk Level 0 - 2 = Low Risk Oriented to surroundings, Maintained a safe environment, Assessed \T\ reinforced patient's understanding of fall precautions, Hourly rounding (assess needs \T\ fall precautionary measures) done. Abuse screen: Denies threats or abuse. Nutritional screening: No deficits noted. Tuberculosis screening: No symptoms or risk factors identified. Assessment: 14:17 General: Appears distressed, Behavior is cooperative, appropriate for age, anxious. cp4 Pain: Complains of pain in abdomen. Neuro: Seizure activity Patient is post-ictal at this time. 14:17 Neuro: Level of Consciousness is awake, alert, confused, Oriented to person, place, cp4 Digital Director are equal bilaterally Moves all extremities. Gait is unsteady, Speech is normal, Facial symmetry appears normal, Pupils are PERRLA, Intact. 14:17 Reassessment: No changes from previously documented assessment. cp4 14:18 Neuro: Reports headache. cp4 15:02 Reassessment: NOTIFIED PT HAD A SEIZURE. CHARGE NURSE AND PHYSICIAN AT BEDSIDE. db 15:10 Reassessment: PHLEBOTOMY AT PT BEDSIDE. db 18:32 Reassessment: Patient appears in no apparent distress at this time. Patient and/or db family updated on plan of care and expected duration. Pain level reassessed. PT FAMILY AT BEDSIDE. Vital Signs: 15:00 BP 150 / 107; Pulse 69; Resp 18; Pulse Ox 100% on R/A; db 16:00 BP 137 / 110; Pulse 121; Resp 18; Pulse Ox 100% ; cp4 17:00 BP 102 / 72; Pulse 111; Resp 17; Pulse Ox 100% ; db 18:00 BP 136 / 116; Pulse 115; Resp 18; Pulse Ox 100% ; cp4 18:00 BP 136 / 116; Pulse 116; Resp 16; Pulse Ox 100% on R/A; db 19:00 BP 137 / 91; Pulse 117; Resp 18; Pulse Ox 100% ; cp4 [place] Coma Score: 13:47 Eye Response: spontaneous(4). Motor Response: localizes pain(5). Verbal Response: iw confused(4). Total: 13. ED Course: 13:45 Patient arrived in ED. db 13:47 Triage completed. iw 13:50 Héctor Brennan MD is Attending Physician. rt 13:58 Maritza Lindsay is Primary Nurse. cp4 14:05 Inserted saline lock: 22 gauge in left upper arm, using aseptic technique. Blood iw collected. 14:14 EKG done, by ED staff, reviewed by Héctor Brennan MD. em1 14:18 Bed in low position. Call light in reach. Side rails up X 1. Seizure precautions cp4 initiated. Provided Education on: seizures. 14:19 CT Head Brain wo Cont In Process Unspecified. EDMS 14:20 Abdomen In Process Unspecified. EDMS 16:12 initiated transfer to [facility]. bd 17:[address] via stretcher. db 17:26 CT Head Angio In Process Unspecified. EDMS 17:26 CT Neck Angio In Process Unspecified. EDMS 19:32 No provider procedures requiring assistance completed. Patient transferred, IV remains cp4 in place. 19:32 Client placed on continuous cardiac and pulse oximetry monitoring. NIBP monitoring cp4 applied. monitoring tech on. 19:33 Arm band placed on right wrist. cp4 Administered Medications: 14:10 Drug: metoCLOPramide IVP 10 mg IVP once; over 1 to 2 minutes Route: IVP; Site: left [facility] upper arm; 18:39 Follow up: Response: No adverse reaction cp4 14:10 Drug: diphenhydrAMINE IVP 25 mg IVP once Route: IVP; Site: left upper arm; cp4 18:39 Follow up: Response: No adverse reaction cp4 15:31 Drug: Keppra IV 1500 mg IV at calculated rate once Route: IV; Rate: calculated rate; cp4 Site: left upper arm; 15:46 Follow up: Response: No adverse reaction; IV Status: Completed infusion cp4 18:00 Follow up: BP 136 / 116; Pulse 115 bpm; Resp 18 bpm; Pulse Ox 100% cp4 15:32 Drug: LORazepam IM 2 mg IM once {Note: given IV per Dr. Brennan.} Route: IM; Site: 4 Other; 18:24 Follow up: Response: No adverse reaction cp4 16:23 Drug: Ketorolac IVP 15 mg IVP once Route: IVP; Site: left upper arm; cp4 18:15 Follow up: Response: No adverse reaction cp4 16:23 Drug: NS 0.9% IV 1000 ml IV at 1 bolus Per protocol; 1000 mL bolus Route: IV; Rate: 1 cp4 bolus; Site: left upper arm; 18:15 Follow up: Response: No adverse reaction; IV Status: Completed infusion cp4 16:54 Drug: Droperidol IVP 1.25 mg IVP once Route: IVP; Site: left upper arm; cp4 18:24 Follow up: Response: No adverse reaction cp4 Medication: 14:18 VIS not applicable for this client. cp4 Outcome: 18:15 ER care complete, transfer ordered by . rt 19:32 Transferred by ground EMS to [facility], Transfer form completed. cp4 X-rays sent w/ patient. 19:32 Condition: stable 19:32 Instructed on the need for transfer, Demonstrated understanding of instructions, follow-up care, 19:52 Patient left the ED. cp4 Signatures: Dispatcher [employer] EDMS Aleah Rodrigues Irene, RN RN iw Kit Hidalgo em1 Lavonne Herman RN RN db Héctor Brennan MD MD rt Maritza Lindsay cp4 Corrections: (The following items were deleted from the chart) 15:32 15:31 LORazepam IM 1 mg IM in Other; given IV per Dr. Brennan. cp4 cp4 18:37 18:33 Neuro: Level of Consciousness is awake, alert, obeys commands, Oriented to cp4 person, place, situation, Digital Director are equal bilaterally Moves all extremities. Gait is unsteady, Speech is normal, Facial symmetry appears normal, Pupils are PERRLA, Intact cp4 18:37 14:17 Neuro: Level of Consciousness is awake, alert, obeys commands, Oriented to cp4 person, place, situation, Digital Director are cp4
--- NOTE | 2023-06-15 18:15 | EDPHYS ---
Physician Documentation [facility] Name: Ellie Song Age: 33 yrs Sex: Female : 1990 Arrival Date: 06/15/2023 Time: 13:41 Bed 6 Private MD: ED Physician Héctor Brennan HPI: 06/14 17:01 This 33 yrs old Female presents to ER via Wheelchair with complaints of Seizure. rt 17:01 Patient with history of seizure disorder, possible nonepileptic seizures presents to rt the ED with a seizure today. The patient had a TAILING HAND shunt placed about 1 month ago. Has not had a seizure since then. Patient is confused limiting history taking but does report headache, abdominal pain. Denies other acute complaints, symptoms are moderate in severity, no other aggravating or alleviating factors.. 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 - Infectious Disease History:: Denies. CDIFF, C. Auris, ESBL, MRSA (w/in 1 year), VRE (w/in 1 year), TB, . - Family history:: not pertinent. - Social history:: Smoking status: Patient denies any tobacco usage or history of. ROS: 17:01 Unable to obtain ROS due to altered mental status, rt Exam: 17:01 Constitutional: This is a well developed, well nourished patient who is awake, alert, rt and in no acute distress. Chest/axilla: Normal chest wall appearance and motion. Nontender with no deformity. No lesions are appreciated. Cardiovascular: Regular rate and rhythm with a normal S1 and S2. No gallops, murmurs, or rubs. Normal PMI, no JVD. No pulse deficits. Respiratory: Lungs have equal breath sounds bilaterally, clear to auscultation and percussion. No rales, rhonchi or wheezes noted. No increased work of breathing, no retractions or nasal flaring. Abdomen/GI: Soft, non-tender, with normal bowel sounds. No distension or tympany. No guarding or rebound. No evidence of tenderness throughout. MS/ Extremity: Pulses equal, no cyanosis. Neurovascular intact. Full, normal range of motion. 17:01 ECG was reviewed by the Attending Physician. 17:01 Neuro: Confused, sensation not testable, somewhat weak on the left upper, left lower extremities, no facial droop noted., 17:13 ECG was reviewed by the Attending Physician. rt Vital Signs: 15:00 BP 150 / 107; Pulse 69; Resp 18; Pulse Ox 100% on R/A; db 16:00 BP 137 / 110; Pulse 121; Resp 18; Pulse Ox 100% ; cp4 17:00 BP 102 / 72; Pulse 111; Resp 17; Pulse Ox 100% ; db 18:00 BP 136 / 116; Pulse 115; Resp 18; Pulse Ox 100% ; cp4 18:00 BP 136 / 116; Pulse 116; Resp 16; Pulse Ox 100% on R/A; db 19:00 BP 137 / 91; Pulse 117; Resp 18; Pulse Ox 100% ; cp4 [place] Coma Score: 13:47 Eye Response: spontaneous(4). Motor Response: localizes pain(5). Verbal Response: iw confused(4). Total: 13. MDM: 13:50 Patient medically screened. rt 19:44 Differential diagnosis: Seizure, intracranial hemorrhage, dysrhythmia, nonepileptic rt seizure. Data reviewed: vital signs, nurses notes, lab test result(s), EKG, radiologic studies. I considered the following discharge prescriptions or medication management in the emergency department Medications were administered in the Emergency Department. See MAR. Independent interpretation of the following test(s) in the Emergency Department CT Scan: My interpretation is No intracranial hemorrhage seen on interpretation of CT scan images. Care significantly affected by the following chronic conditions: Seizure disorder. Counseling: I had a detailed discussion with the patient and/or guardian regarding the historical points, exam findings, and any diagnostic results supporting the discharge/admit diagnosis, lab results, radiology results, the need to transfer to another facility. Response to treatment: the patient's symptoms have mildly improved after treatment. 06/14 13:53 Order name: Basic Metabolic Panel; Complete Time: 15:58 rt 06/14 13:53 Order name: CBC with Diff; Complete Time: 14:32 rt 06/14 13:53 Order name: LFT's; Complete Time: 15:58 rt 06/14 13:53 Order name: Magnesium; Complete Time: 15:58 rt 06/14 13:53 Order name: Troponin HS; Complete Time: 15:58 rt 06/14 13:53 Order name: CT Head Brain wo Cont; Complete Time: 14:32 rt 06/14 14:16 Order name: Abdomen ; Complete Time: 14:32 EDMS 06/14 16:34 Order name: CT Head Angio; Complete Time: 17:37 rt 06/14 16:34 Order name: CT Neck Angio; Complete Time: 17:37 rt 06/14 16:08 Order name: EKG; Complete Time: 16:09 rt 06/14 13:53 Order name: Cardiac monitoring; Complete Time: 14:11 rt 06/14 13:53 Order name: EKG - Nurse/Tech; Complete Time: 14:11 rt 06/14 13:53 Order name: IV Saline Lock; Complete Time: 14:11 rt 06/14 13:53 Order name: Labs collected and sent; Complete Time: 14:11 rt 06/14 13:53 Order name: O2 Per Protocol; Complete Time: 14:11 rt 06/14 13:53 Order name: O2 Sat Monitoring; Complete Time: 14:11 rt 06/14 14:28 Order name: Labs - recollect needed: recollect green top; Complete Time: 15:12 bd 06/14 16:08 Order name: EKG - Nurse/Tech; Complete Time: 16:23 rt EC:01 Rate is 113 beats/min. Rhythm is regular, Sinus tachycardia with No ectopy. QRS [place] is rt Normal. CT interval is normal. QRS interval is normal. QT interval is normal. No Q waves. No ST changes noted. 17:13 Rate is 132 beats/min. Rhythm is regular, Sinus tachycardia with No ectopy. QRS [place] is rt Normal. CT interval is normal. QRS interval is normal. QT interval is normal. No Q waves. Administered Medications: 14:10 Drug: metoCLOPramide IVP 10 mg IVP once; over 1 to 2 minutes Route: IVP; Site: left cp4 upper arm; 18:39 Follow up: Response: No adverse reaction cp4 14:10 Drug: diphenhydrAMINE IVP 25 mg IVP once Route: IVP; Site: left upper arm; cp4 18:39 Follow up: Response: No adverse reaction cp4 15:31 Drug: Keppra IV 1500 mg IV at calculated rate once Route: IV; Rate: calculated rate; cp4 Site: left upper arm; 15:46 Follow up: Response: No adverse reaction; IV Status: Completed infusion cp4 18:00 Follow up: BP 136 / 116; Pulse 115 bpm; Resp 18 bpm; Pulse Ox 100% cp4 15:32 Drug: LORazepam IM 2 mg IM once {Note: given IV per Dr. Brennan.} Route: IM; Site: 4 Other; 18:24 Follow up: Response: No adverse reaction cp4 16:23 Drug: Ketorolac IVP 15 mg IVP once Route: IVP; Site: left upper arm; cp4 18:15 Follow up: Response: No adverse reaction cp4 16:23 Drug: NS 0.9% IV 1000 ml IV at 1 bolus Per protocol; 1000 mL bolus Route: IV; Rate: 1 cp4 bolus; Site: left upper arm; 18:15 Follow up: Response: No adverse reaction; IV Status: Completed infusion cp4 16:54 Drug: Droperidol IVP 1.25 mg IVP once Route: IVP; Site: left upper arm; cp4 18:24 Follow up: Response: No adverse reaction cp4 Disposition Summary: 06/15/23 18:15 Transfer Ordered Notes: Transfer Location: [facility] rt Reason: Higher level of care rt Condition: Fair rt Problem: an acute exacerbation rt Symptoms: have improved rt Accepting Physician: Dr. Bruce(06/15/23 19:52) cp4 Diagnosis - Seizure rt - Headache rt Forms: - Medication Reconciliation Form rt - SBAR form rt Signatures: Dispatcher [employer] EDAleah Clay Ryan, MD MD rt Maritza Lindsay cp4 Corrections: (The following items were deleted from the chart) 13:53 13:53 Head Brain Wo [id number].BRZ ordered. EDMS EDMS 19:52 18:15 Dr. Bruce rt cp4
[2023-06-15 20:15] VITALS: BP 137/91; O2SAT 100
--- NOTE | 2023-06-16 14:01 | EKG ---
Test Date: 2023-06-15 Test Time: 16:17:27 Equalizing Saw Operator: COURTNEY MEASUREMENT RESULTS: Intervals: Rate: 129 VT: 142 QRSD: 78 QT: 310 QTc: 454 [place]: P: 69 VT: 142 QRS: 130 T: 38 INTERPRETIVE STATEMENTS: Sinus tachycardia Possible Left atrial enlargement Possible Right ventricular hypertrophy Abnormal ECG Compared to ECG 06/15/2023 13:52:57 No significant changes Electronically Signed On 06-16-23 13:59:33 CDT by Fidencio Bell
--- NOTE | 2023-06-16 14:01 | EKG ---
Test Date: 2023-06-15 Test Time: 16:18:17 Lining Scrubber: COURTNEY MEASUREMENT RESULTS: Intervals: Rate: 132 ME: 132 QRSD: 78 QT: 382 QTc: 565 [place]: P: 74 ME: 132 QRS: 133 T: 42 INTERPRETIVE STATEMENTS: Sinus tachycardia Possible Left atrial enlargement Possible Right ventricular hypertrophy Nonspecific ST abnormality Abnormal ECG Compared to ECG 06/15/2023 16:17:27 ST (T wave) deviation now present Electronically Signed On 06-16-23 13:59:32 CDT by Fidencio Bell
--- NOTE | 2023-06-16 14:03 | EKG ---
Test Date: 2023-06-15 Test Time: 13:52:57 Seam Presser: DIXIE MEASUREMENT RESULTS: Intervals: Rate: 113 HI: 142 QRSD: 72 QT: 354 QTc: 485 [place]: P: 67 HI: 142 QRS: 84 T: 47 INTERPRETIVE STATEMENTS: Sinus tachycardia Possible Left atrial enlargement Borderline ECG Compared to ECG 04/24/2023 17:28:45 Sinus bradycardia no longer present Electronically Signed On 06-16-23 13:59:50 CDT by Fidencio Bell
== END 2023-06-15 19:52 | disposition short-term general hospital (02) ==
LOC: ER 13:41
DX: G40.909 Epilepsy, unspecified, not intractable, without status epilepticus (principal); R51.9 Headache, unspecified; Z98.2 Presence of cerebrospinal fluid drainage device; Z88.6 Allergy status to analgesic agent
CPT/HCPCS: 85025; 80048; 36415; 83735; 80076; 84484; 70450; 70496; 70498; 74176; Q9967; J1953; J2765; J1200; J7030; 93005